=== PATIENT | male | born 1950 | race Caucasian/White ===

== ENCOUNTER 2017-03-12 07:42 | Outpatient (CLI) | payer MEDICARE ==
[2017-03-12 10:43] LABS: BASOPHILS # (AUTO) 0.1 10^3/uL (0.0-0.1); EOSINOPHILS # (AUTO) 0.4 10^3/uL (0.0-0.7); EOSINOPHILS % (AUTO) 8.1 %; HCT - HEMATOCRIT 44.1 % (42.0-52.0); HGB - HEMOGLOBIN 15.4 g/dL (14.0-18.0); LYMPHOCYTES % (AUTO) 18.8 %; MEAN CORPUSCULAR HEMOGLOBIN 31.4 pg (27.0-31.0); MEAN CORPUSCULAR HGB CONC 34.9 g/dL (32.0-36.0); MEAN CORPUSCULAR VOLUME 89.9 fL (80.0-94.0); MEAN PLATELET VOLUME 8.5 fL (7.4-11.4); MONOCYTES # (AUTO) 0.7 10^3/uL (0.0-1.0); MONOCYTES % (AUTO) 13.3 %; NEUTROPHILS # (AUTO) 3.2 10^3/uL (1.5-6.6); NEUTROPHILS % (AUTO) 58.8 %; NUCLEATED RED BLOOD CELLS AUTO 0.1 /100WBC; RED BLOOD COUNT 4.91 10^6/uL (4.70-6.10); RED CELL DISTRIBUTION WIDTH 13.9 % (12.0-15.0); UNCORRECTED WHITE BLOOD COUNT 5.4 x10^3/uL; WHITE BLOOD COUNT 5.4 x10^3/uL (4.8-10.8)
[2017-03-12 11:00] LABS: ALBUMIN/GLOBULIN RATIO 1.2 (1.0-2.2); BILIRUBIN,TOTAL 0.8 mg/dL (0.2-1.0); BUN - BLOOD UREA NITROGEN 21 mg/dL (6-20); CALCIUM 9.4 mg/dL (8.5-10.3); CARBON DIOXIDE - CO2 26 mmol/L (21-32); CHLORIDE 103 mmol/L (101-111); CHOL/HDL RATIO 3.5 (<5.0); CHOLESTEROL 222 mg/dL; GFR - MDRD 74 (>89); GLUCOSE 134 mg/dL (70-100); HDL CHOLESTEROL 63 mg/dL; LDL/HDL RATIO 2.2 (<3.6); POTASSIUM 4.6 mmol/L (3.5-5.0); SODIUM 137 mmol/L (135-145); TOTAL PROTEIN 7.4 g/dL (6.7-8.2); TRIGLYCERIDES 108 mg/dL; VLDL CHOLESTEROL 22 mg/dL
[2017-03-12 11:14] LABS: HEMOGLOBIN A1C 0.75 g/dL
== END 2017-03-12 07:43 | disposition home or self-care (01) ==
LOC: LAB.F 07:42
PROVIDERS: ATTEND Physician Assistant Medical
DX: I10 Essential (primary) hypertension (principal); E78.5 Hyperlipidemia, unspecified; E11.9 Type 2 diabetes mellitus without complications; Z12.5 Encounter for screening for malignant neoplasm of prostate
CPT/HCPCS: 36415; 80053; 80061; 83036; 85025; G0103; 84153

== ENCOUNTER 2017-12-31 10:33 | Outpatient (CLI) | payer MEDICARE ==
[2017-12-31 18:23] LABS: HB2 TOTAL 14.9 g/dL; HEMOGLOBIN A1C 0.82 g/dL; HEMOGLOBIN A1C % 7.2 % (4.6-6.2)
[2017-12-31 18:30] LABS: PSA FREE 0.48 ng/mL (0.16-2.81)
[2017-12-31 18:32] LABS: PSA TOTAL 3.515 ng/mL (0.000-2.000)
== END 2017-12-31 10:34 | disposition home or self-care (01) ==
LOC: LAB.F 10:33
PROVIDERS: ATTEND Physician Assistant Medical
DX: E11.9 Type 2 diabetes mellitus without complications (principal); Z87.898 Personal history of other specified conditions
CPT/HCPCS: 36415; 82043; 83036; 84154

== ENCOUNTER 2018-05-02 07:19 | Outpatient (CLI) | payer MEDICARE ==
[2018-05-02 11:39] LABS: BASOPHILS % (AUTO) 0.6 %; EOSINOPHILS # (AUTO) 0.2 10^3/uL (0.0-0.7); EOSINOPHILS % (AUTO) 3.8 %; HGB - HEMOGLOBIN 14.6 g/dL (14.0-18.0); LYMPHOCYTES # (AUTO) 1.1 10^3/uL (1.5-3.5); LYMPHOCYTES % (AUTO) 18.9 %; MEAN CORPUSCULAR HEMOGLOBIN 31.7 pg (27.0-31.0); MEAN CORPUSCULAR HGB CONC 34.9 g/dL (32.0-36.0); MEAN CORPUSCULAR VOLUME 90.9 fL (80.0-94.0); MEAN PLATELET VOLUME 8.8 fL (7.4-11.4); MONOCYTES # (AUTO) 0.8 10^3/uL (0.0-1.0); MONOCYTES % (AUTO) 13.3 %; NEUTROPHILS # (AUTO) 3.7 10^3/uL (1.5-6.6); NEUTROPHILS % (AUTO) 63.4 %; PLT - PLATELET COUNT 208 10^3/uL (130-450); RED BLOOD COUNT 4.59 10^6/uL (4.70-6.10); RED CELL DISTRIBUTION WIDTH 13.5 % (12.0-15.0); WHITE BLOOD COUNT 5.8 x10^3/uL (4.8-10.8)
[2018-05-02 11:55] LABS: ALBUMIN 3.9 g/dL (3.2-5.5); ALBUMIN/GLOBULIN RATIO 1.3 (1.0-2.2); CALCIUM 9.3 mg/dL (8.5-10.3); CREATININE 1.1 mg/dL (0.6-1.2); TOTAL PROTEIN 6.8 g/dL (6.7-8.2)
== END 2018-05-02 07:20 | disposition home or self-care (01) ==
LOC: LAB.F 07:19
PROVIDERS: ATTEND Internal Medicine Gastroenterology
DX: E11.9 Type 2 diabetes mellitus without complications (principal)
CPT/HCPCS: 36415; 80053; 85025

== ENCOUNTER 2018-05-09 07:52 | Day surgery (SDC) | payer MEDICARE ==
[2018-05-09] MEDS ORDERED: fentaNYL 100 MCG/2 ML VIAL IVP ONE (07:53)
[2018-05-09] MEDS ORDERED: MIDAZOLAM 2 MG/2 ML VIAL IVP ONE (07:53)
[2018-05-09] MEDS ORDERED: LACTATED RINGERS 1,000 ML IV ONE (08:13)
[2018-05-09 10:09] VITALS: BP 135/65
== END 2018-05-09 07:53 | disposition home or self-care (01) ==
LOC: SDS 07:52
PROVIDERS: ATTEND Internal Medicine Gastroenterology
PROC: 0DBN8ZZ Excision of Sigmoid Colon, Via Natural or Artificial Opening Endoscopic (ICD-10-PCS; principal; 2018-05-09 09:00)
DX: Z12.11 Encounter for screening for malignant neoplasm of colon (principal); D12.5 Benign neoplasm of sigmoid colon; K57.30 Diverticulosis of large intestine without perforation or abscess without bleeding; I10 Essential (primary) hypertension; E66.9 Obesity, unspecified; Z68.38 Body mass index [BMI] 38.0-38.9, adult; G47.30 Sleep apnea, unspecified; E11.9 Type 2 diabetes mellitus without complications
CPT/HCPCS: 45380; J7120

== ENCOUNTER 2018-08-07 10:57 | Outpatient (CLI) | payer MEDICARE ==
[2018-08-07 18:08] LABS: CALCIUM 9.5 mg/dL (8.5-10.3)
[2018-08-07 18:12] LABS: CREATININE,URINE 120.5 mg/dL
[2018-08-07 18:15] LABS: PSA FREE 0.729 ng/mL (0.16-2.81); PSA TOTAL 4.238 ng/mL (0.000-2.000)
[2018-08-07 18:46] LABS: MICROALBUMIN,URINE < 0.3 mg/dL (0-300.0)
[2018-08-07 19:01] LABS: HB2 TOTAL 16.7 g/dL; HEMOGLOBIN A1C 1.08 g/dL; HEMOGLOBIN A1C % 8.1 % (4.6-6.2)
== END 2018-08-07 10:58 | disposition home or self-care (01) ==
LOC: LAB.F 10:57
PROVIDERS: ATTEND Physician Assistant Medical
DX: E11.9 Type 2 diabetes mellitus without complications (principal); R97.20 Elevated prostate specific antigen [PSA]; I10 Essential (primary) hypertension; R00.2 Palpitations
CPT/HCPCS: 36415; 80048; 82043; 82570; 83036; 84153; 84154; 84443

== ENCOUNTER 2018-11-18 07:14 | Outpatient (CLI) | payer MEDICARE ==
[2018-11-18 10:45] LABS: HB2 TOTAL 14.9 g/dL; HEMOGLOBIN A1C 0.87 g/dL; HEMOGLOBIN A1C % 7.5 % (4.6-6.2)
[2018-11-18 10:51] LABS: BUN - BLOOD UREA NITROGEN 17 mg/dL (6-20); CALCIUM 9.4 mg/dL (8.5-10.3); CARBON DIOXIDE - CO2 27 mmol/L (21-32); CHLORIDE 100 mmol/L (101-111); CHOLESTEROL 216 mg/dL; GFR - MDRD 74 (>89); GLUCOSE 187 mg/dL (70-100); HDL CHOLESTEROL 54 mg/dL; LDL CHOLESTEROL,CALCULATED 139 mg/dL; LDL/HDL RATIO 2.6 (<3.6); SODIUM 140 mmol/L (135-145); VLDL CHOLESTEROL 23 mg/dL
== END 2018-11-18 07:15 | disposition home or self-care (01) ==
LOC: LAB.S 07:14
PROVIDERS: ATTEND Physician Assistant Medical
DX: I10 Essential (primary) hypertension (principal); E78.5 Hyperlipidemia, unspecified; E11.9 Type 2 diabetes mellitus without complications
CPT/HCPCS: 36415; 80048; 80061; 83036; 83721

== ENCOUNTER 2019-05-27 10:11 | Outpatient (CLI) | payer MEDICARE ==
[2019-05-27 17:59] LABS: HB2 TOTAL 13.6 g/dL; HEMOGLOBIN A1C 0.86 g/dL; HEMOGLOBIN A1C % 7.9 % (4.6-6.2)
== END 2019-05-27 10:12 | disposition home or self-care (01) ==
LOC: LAB.S 10:11
PROVIDERS: ATTEND Physician Assistant Medical
DX: E11.9 Type 2 diabetes mellitus without complications (principal)
CPT/HCPCS: 36415; 83036

== ENCOUNTER 2019-10-08 09:32 | Outpatient (CLI) | payer MEDICARE ==
[2019-10-08 15:12] LABS: CALCIUM 9.5 mg/dL (8.5-10.3); CREATININE 1.1 mg/dL (0.6-1.2)
[2019-10-08 15:30] LABS: CREATININE,URINE 72.6 mg/dL; MICROALBUMIN,URINE < 0.2 mg/dL (0-300.0)
[2019-10-08 15:38] LABS: HB2 TOTAL 15.2 g/dL; HEMOGLOBIN A1C 0.85 g/dL; HEMOGLOBIN A1C % 7.3 % (4.6-6.2)
== END 2019-10-08 09:33 | disposition home or self-care (01) ==
LOC: LAB.S 09:32
PROVIDERS: ATTEND Physician Assistant Medical
DX: E11.9 Type 2 diabetes mellitus without complications (principal); R97.20 Elevated prostate specific antigen [PSA]
CPT/HCPCS: 36415; 80048; 82043; 82570; 83036; 84153

== ENCOUNTER 2019-12-16 10:45 | Outpatient (CLI) | payer MEDICARE ==
--- NOTE | 2019-12-16 11:37 | SLEEP CARE CONSULTATION ---
Information from patient questionnaire entered by Marlen Skaggs. I have reviewed and concur with the information entered by Marlen Skaggs. This document represents the service I personally performed and the decisions made by me, Sebastien Taylor MD, [facility]. 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) Usual bedtime: [id number] Time it takes to fall asleep: 10 minutes or less Snores at night: Yes Observed to quit breathing while asleep: No Sleeps alone due to snoring: No Number of times waking at night: 2 Reasons for waking at night: reports: Bathroom Toss, Turn, or Twitch while sleeping: No Recalls having dreams: Yes Usually gets out of bed at: 1361-1641 Feels refreshed in the morning: Yes Morning headache: No Sleepy or fatigued during the day: No Ever fallen asleep while driving: No Dreams during day naps: No Prior sleep studies: Yes Year and Where: 2009 [facility] Type of Sleep Study: Polysomnography Additional HPI information: I had the pleasure of seeing Mr. Pinzon along with his today regarding mild obstructive sleep apnea-hypopnea. As you know, he is a 70 year old gentleman who was diagnosed with the sleep-disordered breathing here in 2008. The AHI was 9.3, and sung oxygen saturation 85%. At that time he wanted to pursue oral appliance therapy. He states that he is wearing a mouth guard at night but it is only for bruxism. He never tried CPAP. His says that he snores lightly and steadily at night. She has not seen any pauses in his breathing. The patient denies having nocturnal choking, unrefreshed sleep, morning headache, cognitive impairment, excessive daytime sleepiness, or fatigue. He lost 8 lbs since the sleep study. 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 Patient is and lives in [place]. Have you smoked in the past 12 months: No Alcohol use: Yes Alcohol amount and frequency: 1 beer, 2x/month Caffeine use: Yes Caffeine amount and frequency: 2 cups coffee/day Family History Family history of sleep disordered breathing: No Allergies and Home Medications Drug allergies reviewed: Yes Home medication list reviewed: Yes (metformin and lisinopril) Review of Systems Weight loss over past 5 years: 20 Cardiovascular: reports: high blood pressure Respiratory: denies: shortness of breath, wheeze, sputum production, chronic cough, other Gastrointestinal: denies: heartburn, difficulty swallowing, nausea, vomitting, diarrhea, abdominal pain, other Urinary: reports: urgency Neurological: denies: headaches, seizure, head trauma, disorientation, speech dysfunction, gait or balance problems, fainting or unconsciousness, other Psychiatric: denies: Attention Deficit Hyperactivity, anxiety, depression, mood disorder, claustrophobia, other Ear/Nose/Throat: reports: wisdom teeth removed Endocrine: denies: thyroid disease, history of goiter, sluggishness, too hot or cold, excessive thirst, increased appetite, increased urination, unexplained weakness, other Musculoskeletal: reports: neck pain, back pain Immunologic: denies: sneezing, rash, itching, allergies to food or environment, other Physical Exam Vital signs obtained and entered by: To minimize the risk of COVID-19 exposure, detailed exam was not performed. Height: 5 ft 8 in Weight: 229 lb Body Mass Index: 34.8 BMI Classification: Obese Impression and Plan IMPRESSION: 1. Obstructive Sleep Apnea-Hypopnea Syndrome, mild as previously diagnosed. 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 However, the sleep study was over 10 years ago and should be repeated. The patient presently has no symptoms to go along with the diagnosis. He does not have excessive daytime sleepiness, impaired concentration, unrefreshed sleep, or fatigue. The patient agrees to have the sleep study repeated. In the meantime, I recommend he be given an extension to the CDL certification while we are in the process of evaluating his sleep-disordered breathing. Plan: 1. Schedule an in-laboratory polysomnography. He may sleep in any positions he feels comfortable. Our appliance technician will not encourage supine sleep. He may wear his bruxism mouth guard. 2. Return for a follow up after the sleep study. 3. 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 Visit Type: In Office Provider Statement: I spent 100% of the Face to Face Visit with the patient with greater than 50% spent counseling the patient and coordination of care.
== END 2019-12-16 10:46 | disposition home or self-care (01) ==
LOC: SC 10:45
PROVIDERS: ATTEND Internal Medicine Pulmonary Disease
DX: G47.33 Obstructive sleep apnea (adult) (pediatric) (principal); E66.9 Obesity, unspecified; Z68.34 Body mass index [BMI] 34.0-34.9, adult; E11.9 Type 2 diabetes mellitus without complications; Z79.84 Long term (current) use of oral hypoglycemic drugs
CPT/HCPCS: 99203; G0463; 99212

== ENCOUNTER 2020-05-25 07:12 | Outpatient (CLI) | payer MEDICARE ==
[2020-05-25 14:38] LABS: BASOPHILS # (AUTO) 0.1 10^3/uL (0.0-0.1); BASOPHILS % (AUTO) 0.9 %; EOSINOPHILS # (AUTO) 0.2 10^3/uL (0.0-0.7); EOSINOPHILS % (AUTO) 4.2 %; HGB - HEMOGLOBIN 14.4 g/dL (14.0-18.0); LYMPHOCYTES # (AUTO) 1.3 10^3/uL (1.5-3.5); LYMPHOCYTES % (AUTO) 22.8 %; MEAN CORPUSCULAR HEMOGLOBIN 31.1 pg (27.0-31.0); MEAN CORPUSCULAR HGB CONC 33.2 g/dL (32.0-36.0); MEAN CORPUSCULAR VOLUME 93.7 fL (80.0-94.0); MEAN PLATELET VOLUME 10.2 fL (7.4-11.4); MONOCYTES # (AUTO) 0.8 10^3/uL (0.0-1.0); MONOCYTES % (AUTO) 14.8 %; NEUTROPHILS # (AUTO) 3.1 10^3/uL (1.5-6.6); NEUTROPHILS % (AUTO) 56.2 %; PLT - PLATELET COUNT 243 10^3/uL (130-450); RED BLOOD COUNT 4.63 10^6/uL (4.70-6.10); WHITE BLOOD COUNT 5.5 x10^3/uL (4.8-10.8)
[2020-05-25 14:56] LABS: ALBUMIN 3.9 g/dL (3.2-5.5); ALBUMIN/GLOBULIN RATIO 1.3 (1.0-2.2); ALKALINE PHOSPHATASE 32 IU/L (42-121); ALT ALANINE AMINOTRANSFERASE 23 IU/L (10-60); AST ASPARTATE AMINOTRANSFERASE 23 IU/L (10-42); BILIRUBIN,TOTAL 0.9 mg/dL (0.2-1.0); BUN - BLOOD UREA NITROGEN 21 mg/dL (6-20); CALCIUM 9.7 mg/dL (8.5-10.3); CARBON DIOXIDE - CO2 27 mmol/L (21-32); CHLORIDE 100 mmol/L (101-111); CHOLESTEROL 238 mg/dL; CREATININE 1.1 mg/dL (0.6-1.2); GLUCOSE 165 mg/dL (70-100); HDL CHOLESTEROL 60 mg/dL; LDL CHOLESTEROL,CALCULATED 154 mg/dL; LDL/HDL RATIO 2.6 (<3.6); TOTAL PROTEIN 6.8 g/dL (6.7-8.2); VLDL CHOLESTEROL 24 mg/dL
[2020-05-25 16:15] LABS: CREATININE,URINE 143.4 mg/dL; MICROALBUM/CREATININE RATIO,UR 3.5 ug/mg (<30.0); MICROALBUMIN,URINE 0.5 mg/dL (0-300.0)
== END 2020-05-25 07:13 | disposition home or self-care (01) ==
LOC: LAB.S 07:12
PROVIDERS: ATTEND Physician Assistant
DX: E78.5 Hyperlipidemia, unspecified (principal); I10 Essential (primary) hypertension; E11.9 Type 2 diabetes mellitus without complications; E66.9 Obesity, unspecified
CPT/HCPCS: 36415; 80053; 80061; 82043; 82570; 83036; 83721; 84443; 85025

== ENCOUNTER 2020-09-13 12:42 | Outpatient (CLI) | payer MEDICARE ==
--- NOTE | 2020-09-13 13:10 | SLEEP CARE CONSULTATION ---
Information from patient questionnaire entered by Alina Mccarty. I have reviewed and concur with the information entered by Alina Mccarty. This document represents the service I personally performed and the decisions made by me, Sebastien Taylor MD, [facility]. History of Present Illness Service Date and Time: 09/13/2020 1242 Previous diagnosis: Mild, Obstructive Sleep Apnea-Hypopnea Syndrome AHI: 9.3 (in 2008) Reason for follow up: other (9 month, restart process) Prior sleep studies: Yes Year and Where: 2008 - [facility] additional information: I had the pleasure of seeing Mr. Pinzon along with his today regarding mild obstructive sleep apnea-hypopnea. As you know, he is a 70 year old gentleman who was diagnosed with the sleep-disordered breathing here in 2008. The AHI was 9.3, and sung oxygen saturation 85%. At that time he wanted to pursue oral appliance therapy. He states that he is wearing a mouth guard at night but it i s only for bruxism. He never tried CPAP. His says that he snores lightly and steadily at night. She has not seen any pauses in his breathing. The patient denies having nocturnal choking, unrefreshed sleep, morning headache, cognitive impairment, excessive daytime sleepiness, or fatigue. He lost 10 lbs since the sleep study. 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 A sleep study was ordered last year but because of the pandemic, it was never performed. Subjective Initial Sterling Sleepiness Scale score: 10 (in 2008) Current Sterling Sleepiness Scale score: 5 Allergies and Home Medications Drug allergies reviewed: Yes Home medication list reviewed: Yes Review of Systems Review of systems same as previous: Yes Physical Exam Height: 5 ft 8 in Weight: 235 lb Body Mass Index: 35.7 BMI Classification: Obese Impression and Plan IMPRESSION: 1. Obstructive Sleep Apnea-Hypopnea Syndrome, mild as previously diagnosed. 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 However, the sleep study was over 10 years ago and should be repeated. The patient presently has no symptoms to go along with the diagnosis. He does not have excessive daytime sleepiness, impaired concentration, un refreshed sleep, or fatigue. The patient agrees to have the sleep study repeated. Plan: 1. Schedule an in-laboratory polysomnography. He may sleep in any positions he feels comfortable. Our environmental field services technician will not encourage supine sleep. He may wear his bruxism mouth guard. 2. Return for a follow up after the sleep study. Follow up recommended for: Weight management Visit Type: In Office Time Spent with Patient (minutes): 15 Provider Statement: I spent 100% of the Face to Face Visit with the patient with greater than 50% spent counseling the patient and coordination of care.
== END 2020-09-13 12:43 | disposition home or self-care (01) ==
LOC: SC 12:42
PROVIDERS: ATTEND Internal Medicine Pulmonary Disease
DX: G47.33 Obstructive sleep apnea (adult) (pediatric) (principal); E66.9 Obesity, unspecified; Z68.35 Body mass index [BMI] 35.0-35.9, adult
CPT/HCPCS: 99212; G0463

== ENCOUNTER 2020-10-20 19:45 | Outpatient (CLI) | payer MEDICARE | END 2020-10-20 19:46 | disposition home or self-care (01) | LOC: SC 19:45 | PROVIDERS: ATTEND Internal Medicine Pulmonary Disease | DX: G47.33 Obstructive sleep apnea (adult) (pediatric) (principal); G47.61 Periodic limb movement disorder | CPT/HCPCS: 95810 ==

== ENCOUNTER 2020-11-01 15:08 | Outpatient (CLI) | payer MEDICARE ==
--- NOTE | 2020-11-01 16:19 | SLEEP CARE CONSULTATION ---
Information from patient questionnaire entered by Alina Mccarty. I have reviewed and concur with the information entered by Alina Mccarty. This document represents the service I personally performed and the decisions made by me, Sebastien Taylor MD, [facility]. History of Present Illness Service Date and Time: 11/01/2020 1508 Initial [place] Sleepiness Scale score: 10 (in 2008) Additional HPI information: HPI: Mr. Pinzon returned with his for follow up of the sleep study he had on 10/20/2020. 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 The sleep architecture was relatively normal considering the first-night effect. Respiratory monitoring showed no significant sleep disordered breathing (AHI = 2.2) or hypoxia (sung oxygen saturation of 87% only 0.7% to the total sleep time was spent with oxygen saturation below 90%). The few respiratory events occurred independently of sleep stage and body position (supine AHI = 2.5; non-supine = 2.22). Snore was moderate in intensity. There was severe periodic leg movement of sleep not associated with sleep fragmentation. Cardiac rhythm was normal sinus rhythm without significant arrhythmia. No abnormal behavior (parasomnia) observed during the night. The patient was informed of these findings. I explained to him that he no longer has obstructive sleep apnea-hypopnea. Sleep Study - Results Type of Sleep Study: Polysomnography Prior sleep studies: Yes Year and Where: 2008 - [facility] Allergies and Home Medications Drug allergies reviewed: Yes Home medication list reviewed: Yes Review of Systems Review of systems same as previous: Yes Physical Exam Height: 5 ft 8 in Weight: 235 lb Body Mass Index: 35.7 BMI Classification: Obese Impression and Plan IMPRESSION: 1. Obstructive Sleep Apnea-Hypopnea Syndrome, resolved. The sleep- disordered breathing was mild in 2008 and he has lost some weight. No treatment is indicated. The patient is happy to hear of the results. PLAN: 1. Avoid weight gain. 2. Return for follow up on as needed basis. Counseling Topics: Weight control Follow up with Sleep Care in: as needed Visit Type: In Office Other Participants: Spouse/Significant Other Time Spent with Patient (minutes): 10 Provider Statement: I spent 100% of the Face to Face Visit with the patient with greater than 50% spent counseling the patient and coordination of care.
== END 2020-11-01 15:09 | disposition home or self-care (01) ==
LOC: SC 15:08
PROVIDERS: ATTEND Internal Medicine Pulmonary Disease
DX: Z87.09 Personal history of other diseases of the respiratory system (principal); E66.9 Obesity, unspecified; Z68.35 Body mass index [BMI] 35.0-35.9, adult
CPT/HCPCS: 99212; G0463

== ENCOUNTER 2021-05-03 13:53 | Outpatient (CLI) | payer MEDICARE ==
[2021-05-03 20:08] LABS: ALBUMIN/GLOBULIN RATIO 1.2 (1.0-2.2); BILIRUBIN,TOTAL 0.8 mg/dL (0.2-1.0); CALCIUM 9.8 mg/dL (8.5-10.3); CREATININE 1.6 mg/dL (0.6-1.2); POTASSIUM 4.7 mmol/L (3.5-5.0); TOTAL PROTEIN 7.3 g/dL (6.7-8.2)
[2021-05-03 20:58] LABS: ESTIMATED AVERAGE GLUCOSE 194 mg/dL (70-100); HEMOGLOBIN A1c% 8.4 % (4.27-6.07)
== END 2021-05-03 13:54 | disposition home or self-care (01) ==
LOC: LAB.S 13:53
PROVIDERS: ATTEND Internal Medicine
DX: E11.9 Type 2 diabetes mellitus without complications (principal)
CPT/HCPCS: 36415; 80053; 83036

== ENCOUNTER 2021-06-14 08:00 | Outpatient (CLI) | payer MEDICARE ==
[2021-06-14 20:32] LABS: BASOPHILS # (AUTO) 0.1 10^3/uL (0.0-0.1); BASOPHILS % (AUTO) 0.8 %; EOSINOPHILS # (AUTO) 0.2 10^3/uL (0.0-0.7); HCT - HEMATOCRIT 38.6 % (42.0-52.0); HGB - HEMOGLOBIN 13.5 g/dL (14.0-18.0); LYMPHOCYTES # (AUTO) 1.2 10^3/uL (1.5-3.5); LYMPHOCYTES % (AUTO) 18.9 %; MEAN CORPUSCULAR HEMOGLOBIN 32.2 pg (27.0-31.0); MEAN CORPUSCULAR VOLUME 92.1 fL (80.0-94.0); MEAN PLATELET VOLUME 10.9 fL (7.4-11.4); MONOCYTES # (AUTO) 0.7 10^3/uL (0.0-1.0); MONOCYTES % (AUTO) 11.8 %; NEUTROPHILS # (AUTO) 3.9 10^3/uL (1.5-6.6); NEUTROPHILS % (AUTO) 64.7 %; PLT - PLATELET COUNT 218 10^3/uL (130-450); RED BLOOD COUNT 4.19 10^6/uL (4.70-6.10); RED CELL DISTRIBUTION WIDTH 13.1 % (12.0-15.0); WHITE BLOOD COUNT 6.1 x10^3/uL (4.8-10.8)
[2021-06-14 20:44] LABS: ALBUMIN 3.9 g/dL (3.2-5.5); ALBUMIN/GLOBULIN RATIO 1.3 (1.0-2.2); BILIRUBIN,TOTAL 0.9 mg/dL (0.2-1.0); CALCIUM 9.3 mg/dL (8.5-10.3); CREATININE 1.1 mg/dL (0.6-1.2); TOTAL PROTEIN 6.8 g/dL (6.7-8.2)
== END 2021-06-14 23:59 | disposition home or self-care (01) ==
LOC: LAB.S 08:00
PROVIDERS: ATTEND Nurse Practitioner
DX: R30.0 Dysuria (principal)
CPT/HCPCS: 36415; 80053; 84153; 85025; 87086

== ENCOUNTER 2022-01-25 10:47 | Outpatient (CLI) | payer MEDICARE ==
[2022-01-25 15:24] LABS: ALBUMIN 3.9 g/dL (3.2-5.5); ALBUMIN/GLOBULIN RATIO 1.2 (1.0-2.2); ALKALINE PHOSPHATASE 30 IU/L (42-121); ALT ALANINE AMINOTRANSFERASE 28 IU/L (10-60); AST ASPARTATE AMINOTRANSFERASE 26 IU/L (10-42); BUN - BLOOD UREA NITROGEN 24 mg/dL (6-20); CALCIUM 9.6 mg/dL (8.5-10.3); CARBON DIOXIDE - CO2 25 mmol/L (21-32); CHLORIDE 101 mmol/L (101-111); CHOL/HDL RATIO 4.4 (<5.0); CHOLESTEROL 244 mg/dL; CREATININE 1.1 mg/dL (0.6-1.2); GFR - MDRD 66 (>89); GLUCOSE 108 mg/dL (70-100); HDL CHOLESTEROL 55 mg/dL; LDL CHOLESTEROL,CALCULATED 135 mg/dL; LDL/HDL RATIO 2.5 (<3.6); POTASSIUM 4.9 mmol/L (3.5-5.0); SODIUM 132 mmol/L (135-145); TOTAL PROTEIN 7.1 g/dL (6.7-8.2); TRIGLYCERIDES 268 mg/dL; VLDL CHOLESTEROL 54 mg/dL
[2022-01-25 15:54] LABS: THYROID STIMULATING HORMONE 2.85 uIU/mL (0.34-5.60)
[2022-01-25 20:32] LABS: ESTIMATED AVERAGE GLUCOSE 169 mg/dL (70-100); HEMOGLOBIN A1c% 7.5 % (4.27-6.07)
== END 2022-01-25 10:48 | disposition home or self-care (01) ==
LOC: LAB.S 10:47
PROVIDERS: ATTEND Registered Nurse
DX: I10 Essential (primary) hypertension (principal); E11.9 Type 2 diabetes mellitus without complications; E78.5 Hyperlipidemia, unspecified
CPT/HCPCS: 36415; 80053; 80061; 83036; 83721; 84443

== ENCOUNTER 2022-08-07 10:05 | Outpatient (CLI) | payer MEDICARE ==
[2022-08-07 14:47] LABS: BASOPHILS % (AUTO) 0.4 %; EOSINOPHILS # (AUTO) 0.1 10^3/uL (0.0-0.7); HCT - HEMATOCRIT 34.6 % (42.0-52.0); HGB - HEMOGLOBIN 11.6 g/dL (14.0-18.0); LYMPHOCYTES # (AUTO) 0.8 10^3/uL (1.5-3.5); LYMPHOCYTES % (AUTO) 10.9 %; MEAN CORPUSCULAR HEMOGLOBIN 31.1 pg (27.0-31.0); MEAN CORPUSCULAR HGB CONC 33.5 g/dL (32.0-36.0); MEAN CORPUSCULAR VOLUME 92.8 fL (80.0-94.0); MEAN PLATELET VOLUME 10.2 fL (7.4-11.4); MONOCYTES # (AUTO) 0.9 10^3/uL (0.0-1.0); MONOCYTES % (AUTO) 13.4 %; NEUTROPHILS # (AUTO) 5.1 10^3/uL (1.5-6.6); NEUTROPHILS % (AUTO) 72.6 %; PLT - PLATELET COUNT 225 10^3/uL (130-450); RED BLOOD COUNT 3.73 10^6/uL (4.70-6.10); RED CELL DISTRIBUTION WIDTH 13.2 % (12.0-15.0)
[2022-08-07 15:22] LABS: CALCIUM 9.1 mg/dL (8.5-10.3); CREATININE 2.8 mg/dL (0.6-1.2); POTASSIUM 4.7 mmol/L (3.5-5.0)
[2022-08-07 15:33] LABS: CREATININE,URINE 79.6 mg/dL; MICROALBUM/CREATININE RATIO,UR 35.2 ug/mg (<30.0); MICROALBUMIN,URINE 2.8 mg/dL (0-300.0)
[2022-08-07 21:26] LABS: ESTIMATED AVERAGE GLUCOSE 192 mg/dL (70-100); HEMOGLOBIN A1c% 8.3 % (4.27-6.07)
== END 2022-08-07 10:06 | disposition home or self-care (01) ==
LOC: LAB.S 10:05
PROVIDERS: ATTEND Registered Nurse
DX: E11.9 Type 2 diabetes mellitus without complications (principal); Z13.0 Encounter for screening for diseases of the blood and blood-forming organs and certain disorders involving the immune mechanism
CPT/HCPCS: 36415; 80048; 82043; 82570; 83036; 85025

== ENCOUNTER 2022-08-09 07:00 | Outpatient (CLI) | payer MEDICARE ==
[2022-08-09 14:16] LABS: BILIRUBIN,URINE NEGATIVE (NEGATIVE); GLUCOSE, URINE (UA) NEGATIVE (NEGATIVE); KETONES,URINE (UA) NEGATIVE (NEGATIVE); LEUKOCYTE ESTERASE, URINE NEGATIVE (NEGATIVE); NITRITE,URINE NEGATIVE (NEGATIVE); OCCULT BLOOD,URINE MODERATE (NEGATIVE); PROTEIN,URINE NEGATIVE (NEGATIVE); UROBILINOGEN,URINE 0.2 (NORMAL) E.U./dL (NORMAL)
[2022-08-09 14:23] LABS: BACTERIA,URINE Rare /HPF (None Seen); CLARITY,URINE CLEAR (CLEAR); SQUAMOUS EPITHELIAL CELL,UR RARE Squamous (<= Few); WBC,URINE 0-3 /HPF (0-3)
== END 2022-08-09 23:59 | disposition home or self-care (01) ==
LOC: LAB.S 07:00
PROVIDERS: ATTEND Emergency Medicine
DX: N40.0 Benign prostatic hyperplasia without lower urinary tract symptoms (principal); N40.2 Nodular prostate without lower urinary tract symptoms
CPT/HCPCS: 36415; 81001; 84153; 87086

== ENCOUNTER 2022-08-11 09:23 | Outpatient (CLI) | payer MEDICARE ==
[2022-08-11 15:19] LABS: CALCIUM 9.5 mg/dL (8.5-10.3); CREATININE 1.4 mg/dL (0.6-1.2); POTASSIUM 4.6 mmol/L (3.5-5.0)
== END 2022-08-11 09:24 | disposition home or self-care (01) ==
LOC: LAB.S 09:23
PROVIDERS: ATTEND Emergency Medicine
DX: N17.9 Acute kidney failure, unspecified (principal)
CPT/HCPCS: 36415; 80048

== ENCOUNTER 2022-08-25 09:20 | Outpatient (CLI) | payer MEDICARE ==
[2022-08-25 14:33] LABS: BASOPHILS # (AUTO) 0.1 10^3/uL (0.0-0.1); BASOPHILS % (AUTO) 0.5 %; EOSINOPHILS # (AUTO) 0.1 10^3/uL (0.0-0.7); EOSINOPHILS % (AUTO) 1.3 %; HCT - HEMATOCRIT 37.2 % (42.0-52.0); HGB - HEMOGLOBIN 12.5 g/dL (14.0-18.0); LYMPHOCYTES # (AUTO) 0.8 10^3/uL (1.5-3.5); LYMPHOCYTES % (AUTO) 7.9 %; MEAN CORPUSCULAR HEMOGLOBIN 31.3 pg (27.0-31.0); MEAN CORPUSCULAR HGB CONC 33.6 g/dL (32.0-36.0); MEAN PLATELET VOLUME 10.2 fL (7.4-11.4); MONOCYTES # (AUTO) 1.3 10^3/uL (0.0-1.0); NEUTROPHILS % (AUTO) 77.4 %; PLT - PLATELET COUNT 260 10^3/uL (130-450); RED CELL DISTRIBUTION WIDTH 12.9 % (12.0-15.0); WHITE BLOOD COUNT 10.4 x10^3/uL (4.8-10.8)
[2022-08-25 14:40] LABS: CALCIUM 9.7 mg/dL (8.5-10.3); CREATININE 1.1 mg/dL (0.6-1.2); POTASSIUM 4.6 mmol/L (3.5-5.0)
== END 2022-08-25 09:21 | disposition home or self-care (01) ==
LOC: LAB.S 09:20
PROVIDERS: ATTEND Emergency Medicine
DX: E11.9 Type 2 diabetes mellitus without complications (principal); I10 Essential (primary) hypertension; N17.9 Acute kidney failure, unspecified
CPT/HCPCS: 36415; 80048; 85025

== ENCOUNTER 2022-12-05 11:01 | Outpatient (CLI) | payer MEDICARE ==
[2022-12-05 15:19] LABS: BASOPHILS # (AUTO) 0.1 10^3/uL (0.0-0.1); BASOPHILS % (AUTO) 1.1 %; EOSINOPHILS # (AUTO) 0.3 10^3/uL (0.0-0.7); HCT - HEMATOCRIT 38.4 % (42.0-52.0); HGB - HEMOGLOBIN 12.9 g/dL (14.0-18.0); LYMPHOCYTES # (AUTO) 1.6 10^3/uL (1.5-3.5); LYMPHOCYTES % (AUTO) 21.2 %; MEAN CORPUSCULAR HEMOGLOBIN 30.6 pg (27.0-31.0); MEAN CORPUSCULAR HGB CONC 33.6 g/dL (32.0-36.0); MEAN PLATELET VOLUME 10.3 fL (7.4-11.4); MONOCYTES % (AUTO) 12.8 %; NEUTROPHILS # (AUTO) 4.5 10^3/uL (1.5-6.6); NEUTROPHILS % (AUTO) 59.7 %; PLT - PLATELET COUNT 276 10^3/uL (130-450); RED BLOOD COUNT 4.22 10^6/uL (4.70-6.10); RED CELL DISTRIBUTION WIDTH 13.5 % (12.0-15.0); WHITE BLOOD COUNT 7.6 x10^3/uL (4.8-10.8)
[2022-12-05 15:43] LABS: ALBUMIN 4.1 g/dL (3.2-5.5); ALBUMIN/GLOBULIN RATIO 1.1 (1.0-2.2); BILIRUBIN,TOTAL 0.6 mg/dL (0.2-1.0); CALCIUM 10.2 mg/dL (8.5-10.3); CREATININE 1.4 mg/dL (0.6-1.3); POTASSIUM 4.5 mmol/L (3.5-4.5); TOTAL PROTEIN 7.7 g/dL (6.4-8.9)
[2022-12-05 21:30] LABS: ESTIMATED AVERAGE GLUCOSE 197 mg/dL (70-100); HEMOGLOBIN A1c% 8.5 % (4.27-6.07)
== END 2022-12-05 11:02 | disposition home or self-care (01) ==
LOC: LAB.S 11:01
PROVIDERS: ATTEND Registered Nurse
DX: I10 Essential (primary) hypertension (principal); N17.9 Acute kidney failure, unspecified; E11.9 Type 2 diabetes mellitus without complications
CPT/HCPCS: 36415; 80053; 83036; 85025

== ENCOUNTER 2023-03-08 10:14 | Outpatient (CLI) | payer MEDICARE ==
[2023-03-08 15:00] LABS: BILIRUBIN,URINE NEGATIVE (NEGATIVE); GLUCOSE, URINE (UA) NEGATIVE (NEGATIVE); KETONES,URINE (UA) NEGATIVE (NEGATIVE); LEUKOCYTE ESTERASE, URINE NEGATIVE (NEGATIVE); NITRITE,URINE NEGATIVE (NEGATIVE); OCCULT BLOOD,URINE SMALL (NEGATIVE); PH,URINE 5.5 PH (5.0-7.5); PROTEIN,URINE NEGATIVE (NEGATIVE); UROBILINOGEN,URINE 0.2 (NORMAL) E.U./dL (NORMAL)
[2023-03-08 15:20] LABS: BACTERIA,URINE Rare /HPF (None Seen); CLARITY,URINE CLEAR (CLEAR); CRYSTALS,URINE 11-25 Ca Oxalate /LPF; RBC,URINE 0-5 /HPF (0-5); SQUAMOUS EPITHELIAL CELL,UR NONE SEEN (<= Few); WBC,URINE 0-3 /HPF (0-3)
== END 2023-03-08 10:15 | disposition home or self-care (01) ==
LOC: LAB.S 10:14
PROVIDERS: ATTEND Urology
DX: N39.0 Urinary tract infection, site not specified (principal); N32.0 Bladder-neck obstruction; Z97.8 Presence of other specified devices
CPT/HCPCS: 81001

== ENCOUNTER 2023-03-23 10:04 | Outpatient (CLI) | payer MEDICARE ==
[2023-03-23 16:03] LABS: CALCIUM 10.1 mg/dL (8.5-10.3); CREATININE 1.4 mg/dL (0.6-1.3); POTASSIUM 4.6 mmol/L (3.5-4.5)
[2023-03-23 18:28] LABS: ESTIMATED AVERAGE GLUCOSE 200 mg/dL (70-100); HEMOGLOBIN A1c% 8.6 % (4.27-6.07)
== END 2023-03-23 10:05 | disposition home or self-care (01) ==
LOC: LAB.S 10:04
PROVIDERS: ATTEND Registered Nurse
DX: E11.9 Type 2 diabetes mellitus without complications (principal)
CPT/HCPCS: 36415; 80048; 83036

== ENCOUNTER 2023-06-20 10:27 | Outpatient (CLI) | payer MEDICARE ==
[2023-06-20 16:48] LABS: ESTIMATED AVERAGE GLUCOSE 209 mg/dL (70-100); HEMOGLOBIN A1c% 8.9 % (4.27-6.07)
[2023-06-20 17:05] LABS: CALCIUM 10.4 mg/dL (8.5-10.3); CREATININE 1.7 mg/dL (0.6-1.3); POTASSIUM 4.6 mmol/L (3.5-4.5)
== END 2023-06-20 10:28 | disposition home or self-care (01) ==
LOC: LAB.S 10:27
PROVIDERS: ATTEND Registered Nurse
DX: E11.9 Type 2 diabetes mellitus without complications (principal)
CPT/HCPCS: 36415; 80048; 83036

== ENCOUNTER 2023-09-19 08:17 | Outpatient (CLI) | payer MEDICARE ==
[2023-09-19 15:35] LABS: CALCIUM 9.8 mg/dL (8.5-10.3); CREATININE 1.8 mg/dL (0.6-1.3); POTASSIUM 5.1 mmol/L (3.5-4.5)
[2023-09-19 20:49] LABS: ESTIMATED AVERAGE GLUCOSE 171 mg/dL (70-100); HEMOGLOBIN A1c% 7.6 % (4.27-6.07)
== END 2023-09-19 08:18 | disposition home or self-care (01) ==
LOC: LAB.S 08:17
PROVIDERS: ATTEND Registered Nurse
DX: E11.9 Type 2 diabetes mellitus without complications (principal)
CPT/HCPCS: 36415; 80048; 83036

== ENCOUNTER 2023-09-27 08:45 | Outpatient (CLI) | payer MEDICARE | END 2023-09-27 08:46 | disposition home or self-care (01) | LOC: LAB.S 08:45 | PROVIDERS: ATTEND Registered Nurse | DX: E87.5 Hyperkalemia (principal) | CPT/HCPCS: 36415; 84132 ==

== ENCOUNTER 2023-12-22 08:57 | Outpatient (CLI) | payer MEDICARE ==
[2023-12-22 09:46] LABS: BASOPHILS # (AUTO) 0.1 10^3/uL (0.0-0.1); BASOPHILS % (AUTO) 0.8 %; EOSINOPHILS # (AUTO) 0.4 10^3/uL (0.0-0.7); EOSINOPHILS % (AUTO) 6.3 %; HCT - HEMATOCRIT 37.2 % (42.0-52.0); HGB - HEMOGLOBIN 12.6 g/dL (14.0-18.0); LYMPHOCYTES # (AUTO) 1.2 10^3/uL (1.5-3.5); LYMPHOCYTES % (AUTO) 18.9 %; MEAN CORPUSCULAR HEMOGLOBIN 31.3 pg (27.0-31.0); MEAN CORPUSCULAR HGB CONC 33.9 g/dL (32.0-36.0); MEAN CORPUSCULAR VOLUME 92.5 fL (80.0-94.0); MEAN PLATELET VOLUME 9.9 fL (7.4-11.4); MONOCYTES # (AUTO) 0.7 10^3/uL (0.0-1.0); MONOCYTES % (AUTO) 11.7 %; NEUTROPHILS # (AUTO) 3.8 10^3/uL (1.5-6.6); NEUTROPHILS % (AUTO) 61.2 %; PLT - PLATELET COUNT 222 10^3/uL (130-450); RED BLOOD COUNT 4.02 10^6/uL (4.70-6.10); RED CELL DISTRIBUTION WIDTH 13.3 % (12.0-15.0); WHITE BLOOD COUNT 6.2 x10^3/uL (4.8-10.8)
[2023-12-22 10:08] LABS: CREATININE,URINE 48.8 mg/dL; MICROALBUM/CREATININE RATIO,UR 30.7 ug/mg (<30.0); MICROALBUMIN,URINE 1.5 mg/dL
[2023-12-22 10:11] LABS: ALBUMIN 3.9 g/dL (3.2-5.5); ALBUMIN/GLOBULIN RATIO 1.2 (1.0-2.2); ALKALINE PHOSPHATASE 39 IU/L (42-121); ALT ALANINE AMINOTRANSFERASE 14 IU/L (10-60); AST ASPARTATE AMINOTRANSFERASE 18 IU/L (10-42); BILIRUBIN,TOTAL 0.7 mg/dL (0.2-1.0); BUN - BLOOD UREA NITROGEN 37 mg/dL (6-20); CALCIUM 9.8 mg/dL (8.5-10.3); CARBON DIOXIDE - CO2 24 mmol/L (21-32); CHLORIDE 101 mmol/L (101-111); CHOL/HDL RATIO 4.4 (<5.0); CHOLESTEROL 225 mg/dL; CREATININE 1.8 mg/dL (0.6-1.3); GFR - MDRD 37 (>89); GLUCOSE 129 mg/dL (74-104); HDL CHOLESTEROL 51 mg/dL; LDL CHOLESTEROL,CALCULATED 118 mg/dL; LDL/HDL RATIO 2.3 (<3.6); SODIUM 133 mmol/L (135-145); TOTAL PROTEIN 7.1 g/dL (6.4-8.9); TRIGLYCERIDES 280 mg/dL; VLDL CHOLESTEROL 56 mg/dL
[2023-12-22 10:20] LABS: THYROID STIMULATING HORMONE 2.93 uIU/mL (0.34-5.60)
[2023-12-22 10:49] LABS: ESTIMATED AVERAGE GLUCOSE 151 mg/dL (70-100); HEMOGLOBIN A1c% 6.9 % (4.27-6.07)
== END 2023-12-22 08:58 | disposition home or self-care (01) ==
LOC: LAB 08:57
PROVIDERS: ATTEND Registered Nurse
DX: E11.9 Type 2 diabetes mellitus without complications (principal); Z13.228 Encounter for screening for other metabolic disorders; Z13.29 Encounter for screening for other suspected endocrine disorder; Z13.0 Encounter for screening for diseases of the blood and blood-forming organs and certain disorders involving the immune mechanism; Z13.220 Encounter for screening for lipoid disorders
CPT/HCPCS: 36415; 80053; 80061; 82043; 82570; 83036; 83721; 84443; 85025

== ENCOUNTER 2024-09-28 12:40 | Inpatient (IN) ==
--- NOTE | 2024-09-28 13:21 | ED Physician Documentation ---
History of Present Illness Stated complaint Stated Complaint: CATHETER ISSUES Chief complaint Chief Complaint: General History obtained from History obtained from: Patient Additonal information Additional information: This is a very nice 74-year-old gentleman who presents with hematuria. The patient has a history of prostate hypertrophy, and over the course of the past 2 years he has been self catheterizing to void. He had some hematuria develop last night and was seen here early this morning in the emergency department and had an indwelling urinary catheter placed due to clots resulting in acute urethral obstruction. Per notes, they tried a number of different catheter sizes and ultimately were only able to get in a 16 Emirati coud catheter. They irrigated this until clear and patient was discharged home. He states things were going okay up until shortly prior to arrival when he developed increasing hematuria and then felt like he was not passing any urine. He is quite uncomfortable. He is on any anticoagulation, is on finasteride and tamsulosin. He follows with Dr. Lang, urologist in [place]. Notably, the patient is [employer]ism and would not want any blood transfusion or blood products. Review of Systems Status of ROS: 10 or more systems reviewed and unremarkable except as noted in history and below Meds/Allgy Home Medications Ambulatory Orders Medication Instructions Recorded Confirmed vibegron 75 mg tablet (Gemtesa) 75 mg PO QDAY 03/25/24 09/28/24 finasteride 5 mg tablet 5 mg PO QDAY 09/24/24 glipizide 10 mg tablet, extended 10 mg PO QDAY 5 09/28/24 release 24 hr tadalafil 5 mg tablet 5 mg PO QDAY 09/24/24 tamsulosin 0.4 mg capsule 0.8 mg PO QDAY 09/24/2412/15 insulin glargine-yfgn 100 unit/mL 10 unit (0.1 mL) sub cut QPM 09/27/24 09/28/24 (3 mL) subcutaneous pen stopped metformin d/t CKD #1 5 mL pen needle, diabetic 31 gauge x #400 ea 09/27/2409/27" empagliflozin 10 mg tablet 10 mg PO DAILY 09/28/2412/15 (Jardiance) lisinopril 20 mg tablet 10 mg PO QDAY 09/28/2409/28 Allergies Allergies Allergy/AdvReac Type Severity Reaction Status Date / Time No Known Drug Allergies Allergy Verified 09/28/24 12:45 PFSH Active Problems All Active Problems (Updated 09/28/24 @ 16:39 by EDWAR Wan) Prostate mass (Acute) Acute urethral obstruction (Acute) Hematuria (Acute) Acute hyperkalemia (Acute) Hyperkalemia (Acute) Acute urethral obstruction (Acute) Hematuria (Acute) Diabetes mellitus with chronic kidney disease, with long-term current use of insulin (Acute) Insulin dependent diabetes mellitus (Acute) Chronic renal disease, stage 4, severely decreased glomerular filtration rate (GFR) between 15-29 mL/min/1.73 square meter (Acute) Family history of thyroid disease (Acute) Elevated alkaline phosphatase level (Acute) Tachycardia (Acute) Urinary retention (Acute) Hyperlipidemia (Acute) Essential hypertension, benign (Acute) Medical History Medical History Benign prostate hyperplasia Family History Family History Father High blood pressure Mother High blood pressure Social History Social History Smoking Status: Never smoker Do you dip or chew tobacco?: No Do you vape?: No Relationship: Do you feel safe in your home environment?: Yes Suffered physical, verbal, emotional, or financial abuse?: No History of Abuse: No ETOH Use: Beer Frequency: Occasional Substance Use: denies use POLST Patient has POLST: No Exam Exam Vital Signs: Vital Signs x48h Temp Pulse Resp BP Pulse Ox 09/28/24 16:12 97 18 160/83 H 97 09/28/24 15:22 104 H 18 179/89 H 97 09/28/24 12:45 36.3 C L 102 H 18 157/83 H 96 Constitutional normal general appearance, no apparent distress, no limitations and alert Respiratory breath sounds equal bilaterally, normal respiratory effort and no retractions Cardiovascular normal heart rate noted, regular rhythm noted and peripheral pulses 2+ throughout Gastrointestinal abdomen normal to inspection, abdomen soft to palpation, nontender to palpation and nondistended Genitourinary Indwelling Daniels catheter in place draining scant bloody urine, normal external genitalia, bladder full to palpation. Results Vitals Vitals: Vital Signs - 24 hr 09/28/24 03:10 09/28/24 12:45 09/28/24 15:22 Temperature 36.3 C L Temperature Source Temporal Artery Scan Pulse Rate 102 H 104 H Respiratory Rate 18 18 Blood Pressure 157/83 H 179/89 H O2 Saturation 96 97 O2 Source Room air Room air Room air Pain Intensity 1 5 09/28/24 16:12 Temperature Temperature Source Pulse Rate 97 Respiratory Rate 18 Blood Pressure 160/83 H O2 Saturation 97 O2 Source Room air Pain Intensity Oxygen O2 Source Room air EKG (time done) 1524: EKG releavant findings:: EKG personally interpreted by author of this note. Relevant findings are: Rate: Rate (enter#) (100) Rhythm: Sinus tachycardia Intervals: Prolonged NV QRS: RBBB Ischemia: Normal ST segments Computer interpretation: Agree with computer Labs Labs: Laboratory Tests 09/28/24 14:30 WBC 6.8 RBC 3.30 L Hgb 10.0 L Hct 30.5 L MCV 92.4 MCH 30.3 MCHC 32.8 RDW 14.3 Plt Count 199 MPV 9.0 Neut # (Auto) 5.2 Lymph # (Auto) 0.5 L Kimball # (Auto) 0.9 Eos # (Auto) 0.1 Baso # (Auto) 0.0 Absolute Nucleated RBC 0.00 Nucleated RBC % 0.0 Sodium 132 L Potassium 6.2 H* Chloride 106 Carbon Dioxide 20 L Anion Gap 6.0 BUN 50 H Creatinine 3.2 H Estimated GFR (MDRD) 19 L Glucose 152 H Calcium 8.9 Total Bilirubin 0.5 AST 21 ALT 9 L Alkaline Phosphatase 290 H Total Protein 6.8 Albumin 3.9 Globulin 2.9 Albumin/Globulin Ratio 1.3 Lipase 23 PD Medical Decision Making ED course Complexity details: reviewed old records, reviewed results, re-evaluated patient, considered differential, d/w patient, d/w family and d/w international travel consultant ED course: Very nice 74-year-old male presents with hematuria after Daniels catheter was placed last night for acute ureteral obstruction. Patient had a 16 Emirati Daniels catheter placed and unfortunately has clotted off with blood. We initially attempted irrigation of the 16 Emir[place] as it was difficult to place early this morning and they were not able to place anything larger. He did respond well to irrigation but after period of time clotted off again with blood. In the meantime, I did order a CT abdomen pelvis Noncon to evaluate for any potential causes of the bleeding and unfortunately this does show likely metastatic prostate cancer. I subsequently obtained labs as recent labs showed a worsening renal function and slowly rising potassium, and this was again somewhat worse today with a potassium of 6.2, and creatinine of 3.2 up from a prior of 2.8. The patient was given calcium gluconate, IV fluids, insulin and glucose, EKG shows no acute T wave changes or signs of hyperkalemia. I have spoken with Dr. Guo the urologist to has reviewed the images and spoken with the patient. He recommends three-way Daniels catheter drainage and we placed a 22 Emirati catheter here and started three-way bladder irrigation which patient is tolerating well. We will obtain a repeat potassium and renal function panel and if improved, patient can be admitted to the hospitalist service for ongoing management of hyperkalemia and hematuria quiring continuous bladder irrigation. Discharge Plan Discharge Patient Disposition: 66 [facility] DC/Xfer Condition: Good Clinical Impression: Acute hyperkalemia, Hematuria, Acute urethral obstruction, Prostate mass Prescriptions: No Action Jardiance 10 mg tablet 10 mg PO DAILY lisinopril 20 mg tablet 10 mg PO QDAY Gemtesa 75 mg tablet 75 mg PO QDAY finasteride 5 mg tablet 5 mg PO QDAY glipizide 10 mg tablet extended release 24hr 10 mg PO QDAY tamsulosin 0.4 mg capsule 0.8 mg PO QDAY tadalafil 5 mg tablet 5 mg PO QDAY insulin glargine-yfgn 100 unit/mL (3 mL) insulin pen 10 unit subcut QPM Qty: 15 2RF Rx Instructions: Inject 10 units subcutaneously (30-degree angle) into abdomen every night. May increase dose by 2 units/night every 3 days to maintain fasting blood glucose between 90 and 120 mg/dL. Rotate abdominal skin sites. Follow up in 3 months. Get lab work monthly until seen. (DME) pen needle, diabetic 31 gauge x 5/16" needle See Rx Instructions .Route Qty: 400 0RF Rx Instructions: As directed Print Language: Gabonese
--- OUTSIDE RECORDS SUMMARY | 2024-09-28 13:44 | EXTERNAL MEDICAL SUMMARY RPT | Continuity of Care Document ---
Author Organization [facility] Address [address] [place] [id number] Phone Care Team Providers Care Dairy Consultant Name Role Phone Jessica Bradley Unavailable Unavailable Medications date description facility 2024-07-22 00:00 Cephalexin [facility] 2024-07-15 00:00 Lisinopril [facility] 2024-07-15 00:00 Metformin [facility] Problems date description facility 2024-07-15 10:25 Urinary tract infection, site n ot specified [facility] 2024-07-16 05:30 Urinary tract infection, site n ot specified [facility] 2024-07-16 12:49 Urinary tract infection, site n ot specified [facility] 2024-08-01 09:19 Urinary tract infection, site n ot specified [facility] 2024-08-28 13:21 Elevated prostate specific anti gen [PSA] [facility] 2024-08-29 00:05 Elevated prostate specific anti gen [PSA] [facility] 2024-09-04 00:00 History of urinary tract infect ion [facility] 2024-09-04 10:35 Elevated prostate specific anti gen [PSA] [facility] 2024-09-04 10:38 Elevated prostate specific anti gen [PSA] [facility] 2024-09-04 10:44 Elevated prostate specific anti gen [PSA] [facility] 2024-09-05 10:58 Elevated prostate specific anti gen [PSA] [facility] 2024-09-09 09:37 Elevated prostate specific anti gen [PSA] [facility] 2024-09-18 08:42 Type 2 diabetes andreas itus with unspecified complications [facility] 2024-09-18 08:42 Essential (primary) hypertensio [facility] 2024-09-18 08:43 Type 2 diabetes andreas itus with unspecified complications [facility] 2024-09-18 08:43 Essential (primary) hypertensio [facility] 2024-09-19 00:06 Type 2 diabetes andreas itus with unspecified complications [facility] 2024-09-19 00:06 Essential (primary) hypertensio n [facility] 2024-09-23 12:25 Essential (primary) hypertensio n [facility] 2024-09-25 00:01 Abnormal levels of other serum enzymes [facility] 2024-09-25 00:01 Family history of ot her endocrine, nutritional and metabolic diseases [facility] Results/Labs test date facility value unit notes Result panel 1 Urine Culture 2024-07-16 08:40 [facility] (missing) (missing) (missing) [facility] 2024-07-16 08:40 [facility] Very Early Growth: Culture too young for work-up reincubated (missing) Comment CHECK FOR SENSITIVIES Result panel 2 Urine Culture 2024-07-17 07:46 [facility] (missing) (missing) (missing) [facility] 2024-07-17 07:46 [facility] Very Early Growth: Culture too young for work-up reincubated (missing) Comment CHECK FOR SENSITIVIES Result panel 3 [facility] 2024-07-18 07:20 [facility] >100,000 cfu/ml (missing) Ampicillin 2024-07-18 07:20 [facility] >=32 (missing) (missing) Levofloxacin 2024-07-18 07:20 [facility] <=0.12 (missing) (missing) Ciprofloxacin 2024-07-18 07:20 [facility] <=0.25 (missing) (missing) Imipenem 2024-07-18 07:20 [facility] <=0.25 (missing) (missing) Ertapenem 2024-07-18 07:20 [facility] <=0.5 (missing) (missing) Cefepime 2024-07-18 07:20 [facility] <=1 (missing) (missing) Ceftazidime 2024-07-18 07:20 [facility] <=1 (missing) (missing) Ceftriaxone 2024-07-18 07:20 [facility] <=1 (missing) (missing) Gentamicin 2024-07-18 07:20 [facility] <=1 (missing) (missing) Tobramycin 2024-07-18 07:20 [facility] <=1 (missing) (missing) Amoxicillin/Clavul anate 2024-07-18 07:20 [facility] <=2 (missing) (missing) Trimethoprim/Sulfa methoxazole 2024-07-18 07:20 [facility] <=20 (missing) (missing) Cefazolin 2024-07-18 07:20 [facility] <=4 (missing) (missing) Nitrofurantoin 2024-07-18 07:20 [facility] 32 (missing) (missing) Ampicillin/Sulbact am 2024-07-18 07:20 [facility] 8 (missing) (missing) [facility]24-07-18 07[facility] oxytoca (missing) Comment CHECK FOR SENSITIVIES Action to follow 2024-07-18 07:20 [facility] No Further Workup (missing) (missing) Result panel 4 PSA TOTAL 2024-08-28 13:30 [facility] 242.673 ng/ml [facility] uses a WHO cutoff value of 2.0 ng/mL. Result panel 5 [facility] 2024-09-05 08:10 [facility] >100,000 cfu/ml (missing) ORGANISM 2024-09-05 08:10 [facility] GNBGram negative bacilli (missing) (missing) Action to follow 2024-09-05 08:10 [facility] Identification and Sensitivity to Follow (missing) (missing) Result panel 6 Urine Culture 2024-09-06 09:01 [facility] (missing) (missing) (missing) [facility] 2024-09-06 09:01 [facility] >100,000 cfu/ml (missing) Ampicillin 2024-09-06 09:01 [facility] >=32 (missing) (missing) Ciprofloxacin 2024-09-06 09:01 [facility] <=0.06 (missing) (missing) Ertapenem 2024-09-06 09:01 [facility] <=0.12 (missing) (missing) Levofloxacin 2024-09-06 09:01 [facility] <=0.12 (missing) (missing) Ceftriaxone 2024-09-06 09:01 [facility] <=0.25 (missing) (missing) Meropenem 2024-09-06 09:01 [facility] <=0.25 (missing) (missing) Gentamicin 2024-09-06 09:01 [facility] <=1 (missing) (missing) Tetracycline 2024-09-06 09:01 [facility] <=1 (missing) (missing) Nitrofurantoin 2024-09-06 09:01 [facility] <=16 (missing) (missing) Amoxicillin/Clavula kailash 2024-09-06 09:01 [facility] <=2 (missing) (missing) Trimethoprim/Sulfam ethoxazole 2024-09-06 09:01 [facility] <=20 (missing) (missing) Urine Culture 2024-09-06 09:01 [facility] Isolates that test susceptible to tetracycline are (missing) (missing) ORGANISM 2024-09-06 09:01 [facility] KLEOXY[facility]lebsiella oxytoca (missing) (missing) Action to follow 2024-09-06 09:01 [facility] No Further Workup (missing) (missing) Urine Culture 2024-09-06 09:01 [facility] considered susceptible to doxycycline and minocycline. (missing) (missing) Result panel 7 NUCLEATED RED BLOOD CELLS AUTO 2024-09-18 09:03 [facility] 0.0 /100wbc (missing) BASOPHILS # (AUTO) 2024-09-18 09:03 [facility] 0.0 10 3/ul (missing) NRBC ABSOLUTE COUNT (AUTO) 2024-09-18 09:03 [facility] 0.00 x10 3/ul (missing) EOSINOPHILS # (AUTO) 2024-09-18 09:03 [facility] 0.2 10 3/ul (missing) BILIRUBIN,TOTAL 2024-09-18 09:03 [facility] 0.4 mg /dl As of October 2022 testing method has changed, this may include reference ranges. MONOCYTES # (AUTO) 2024-09-18 09:03 [facility] 0.8 10 3/ul (missing) LYMPHOCYTES # (AUTO) 2024-09-18 09:03 [facility] 0.9 10 3/ul (missing) ALBUMIN/GLOBULIN RATIO 2024-09-18 09:03 [facility] 1.2 (missing) (missing) MEAN PLATELET VOLUME 2024-09-18 09:03 [facility] 10.1 fl (missing) HGB - HEMOGLOBIN 2024-09-18 09:03 [facility] 10.7 g /dl (missing) CHLORIDE 2024-09-18 09:03 [facility] 106 mmol/l As of October 2022 testing method has changed, this may include reference ranges. LDL CHOLESTEROL,CALCULAT ED 2024-09-18 09:03 [facility] 111 mg/dl Social History date description facility 2024-09-04 00:00 Never smoked tobacco ([facility] Vital Signs date measurement value units 2024-07-15 00:00 BMI 34.0 kg/m2 2024-07-15 00:00 BP_diastolic 82 mmHg 2024-07-15 00:00 BP_systolic 144 mmHg 2024-07-15 00:00 heart_rate 93 /min 2024-07-15 00:00 height_metric 175.26 cm 2024-07-15 00:00 height_standard 69 in 2024-07-15 00:00 o2_saturation 97 % 2024-07-15 00:00 respiration_rate 16 /min 2024-07-15 00:00 weight_metric 104.32 kg 2024-07-15 00:00 weight_standard 229.99 lb 2024-09-04 00:00 BMI 34.0 kg/m2 2024-09-04 00:00 BP_diastolic 75 mmHg 2024-09-04 00:00 BP_systolic 135 mmHg 2024-09-04 00:00 heart_rate 93 /min 2024-09-04 00:00 height_metric 175.26 cm 2024-09-04 00:00 height_standard 69 in 2024-09-04 00:00 o2_saturation 95 % 2024-09-04 00:00 respiration_rate 16 /min 2024-09-04 00:00 weight_metric 104.32 kg 2024-09-04 00:00 weight_standard 229.99 lb
--- NOTE | 2024-09-28 14:05 | CT Report ---
PROCEDURE: CT Abdomen/Pelvis WO INDICATIONS: hematuria TECHNIQUE: A CT scan of the abdomen and pelvis was performed without the use of intravenous contrast. Images were recorded and evaluated at appropriate window settings. Reformats: coronal and sagittal. For radiation dose reduction, the following was used: automated exposure control, adjustment of mA and/or kV according to patient size. COMPARISON: None. FINDINGS: Image quality: Diagnostic. Lower chest: Unremarkable. Liver: No contour-deforming mass. Gallbladder: Biliary tree: No intrahepatic or extrahepatic dilation, accounting for age. Spleen: No splenomegaly. Pancreas: No pancreatic ductal dilation. Adrenals: No adrenal nodule. Kidneys and ureters: There is moderate bilateral hydronephrosis and hydroureter, extending to the UVJ. Stomach, bowel and peritoneum: No gastric or small bowel dilation. No abnormal wall thickening. No pathologic free fluid. Lymph nodes: Multiple enlarged periaortic nodes measuring up to 1.5 cm short [place]. Vessels: No infrarenal aortic aneurysm. Reproductive organs: There is prostatic enlargement measuring 6.5 x 6, with lobulated contours, and defined margins and probable involvement of the seminal vesicles and bladder base. Bladder: Collapse around a Daniels catheter, cannot be adequately assessed. Pelvic lymph nodes: Moderately large bilateral external/internal iliac nodes measuring up to 1 cm short [place]. Bones: Multiple sclerotic osseous lesions seen in the lumbar spine, ribs and pelvis. No definitive superimposed fracture. Other: No significant ventral or inguinal hernia. IMPRESSION: 1. Findings most suggestive of prostate cancer, with extracapsular extension, pelvic and retroperitoneal lymphadenopathy as well as metastatic osseous disease. 2. There is associated bladder outlet obstruction, with moderate bilateral hydronephrosis and hydroureter. Reviewed by: Dakotah Saenz MD on 09/28/2024 2:04 PM PDT Approved by: Dakotah Saenz MD on 09/28/2024 2:04 PM PDT Station ID: [id number]
[2024-09-28 14:33] LABS: BASOPHILS % (AUTO) 0.6 %; EOSINOPHILS # (AUTO) 0.1 10^3/uL (0.0-0.7); EOSINOPHILS % (AUTO) 1.2 %; HCT - HEMATOCRIT 30.5 % (42.0-52.0); LYMPHOCYTES # (AUTO) 0.5 10^3/uL (1.5-3.5); LYMPHOCYTES % (AUTO) 7.9 %; MEAN CORPUSCULAR HEMOGLOBIN 30.3 pg (27.0-31.0); MEAN CORPUSCULAR HGB CONC 32.8 g/dL (32.0-36.0); MEAN CORPUSCULAR VOLUME 92.4 fL (80.0-94.0); MONOCYTES # (AUTO) 0.9 10^3/uL (0.0-1.0); MONOCYTES % (AUTO) 12.6 %; NEUTROPHILS # (AUTO) 5.2 10^3/uL (1.5-6.6); NEUTROPHILS % (AUTO) 76.2 %; PLT - PLATELET COUNT 199 10^3/uL (130-450); RED CELL DISTRIBUTION WIDTH 14.3 % (12.0-15.0); WHITE BLOOD COUNT 6.8 x10^3/uL (4.8-10.8)
[2024-09-28 14:43] LABS: POTASSIUM 6.2 mmol/L (3.5-4.5)
[2024-09-28 14:47] LABS: ALBUMIN 3.9 g/dL (3.2-5.5); ALBUMIN/GLOBULIN RATIO 1.3 (1.0-2.2); BILIRUBIN,TOTAL 0.5 mg/dL (0.2-1.0); CALCIUM 8.9 mg/dL (8.5-10.3); CREATININE 3.2 mg/dL (0.6-1.3); TOTAL PROTEIN 6.8 g/dL (6.4-8.9)
[2024-09-28] MEDS: LIDOCAINE JELLY 2% 6 ML JEL.PF.APP TOP STA (14:57)
[2024-09-28] MEDS: INSULIN REGULAR, HUMAN 300 UNIT/3 ML PEN IVP STA ×2 (15:11→17:44)
[2024-09-28] MEDS: CALCIUM GLUC 1,000MG/50ML-NACL 1,000 MG/50 ML BAG IV STA (15:11)
[2024-09-28] MEDS: DEXTROSE 50% ABBOJECT 25 GM/50 ML SYRINGE IVP STA ×2 (15:11→17:44)
[2024-09-28] MEDS: SODIUM CHLORIDE 0.9% 1,000 ML IV STA (15:46)
--- NOTE | 2024-09-28 15:58 | CONSULTATION NOTE ---
Chief Complaint Chief Complaint Chief Complaint: hematuria, clot retention History of Present Illness Admitted From Admitted From:: ER History Obtained From Records Reviewed: Hospital History obtained from: patient Exam Limitations: none History of Present Illness HPI Comment/Other: Enoch is a 74-year-old male with complex urological history. He states he has been catheterizing for about 2 years intermittently. He has had a few issues with this including infections and hematuria. He states he had a urinary tract infection 4 months ago though his culture at this hospital was negative. He states that he sees Dr. Lang at [facility] for his urological care. Dr. Lang has been worried about infections though and he states he has been on a long course of antibiotics which have upset the patient's stomach. Last night he presented to the hospital here with inability to catheterize along with clots in the urine. A 16 [place] catheter was placed and irrigated to clear and he was sent home. He represented today with clot retention again in his catheter. Urology was consulted at that time. Imaging was performed today showing likely widely metastatic prostate cancer with retroperitoneal and pelvic lymphadenopathy and osseous metastasis. He also had an enlarged bladder with bilateral hydroureteronephrosis concerning for either bladder outlet obstruction/catheter obstruction versus locally invasive prostate cancer. Of note his GFR has significantly decreased with his most recent GFR being 19 down from his baseline of around 40. He is hyperkalemic with a potassium of 6.2. He has had multiple PSA testing over the years which shows an increase from around 5 a few years ago to 240 [address] Dr[address] Lang wanted to obtain an MRI of his prostate Of note the patient is a [employer] and refuses blood transfusion products. His hemoglobin is 10.0 down from his baseline which appears to be around 12-13 At the time of my assessment a new 22 [place] three-way Starr catheter was placed with some mild hematuria and clots in the bag but seem to be draining easily on medium drip continuous bladder irrigation PFSH Active Problems All Active Problems (Updated 09/28/24 @ 16:02 by Jaziel Guo MD) Hyperkalemia (Acute) Acute urethral obstruction (Acute) Hematuria (Acute) Diabetes mellitus with chronic kidney disease, with long-term current use of insulin (Acute) Insulin dependent diabetes mellitus (Acute) Chronic renal disease, stage 4, severely decreased glomerular filtration rate (GFR) between 15-29 mL/min/1.73 square meter (Acute) Family history of thyroid disease (Acute) Elevated alkaline phosphatase level (Acute) Tachycardia (Acute) Urinary retention (Acute) Hyperlipidemia (Acute) Essential hypertension, benign (Acute) Medical History Medical History Benign prostate hyperplasia Family History Family History Father High blood pressure Mother High blood pressure Social History Social History Smoking Status: Never smoker Do you dip or chew tobacco?: No Do you vape?: No Relationship: Do you feel safe in your home environment?: Yes Suffered physical, verbal, emotional, or financial abuse?: No History of Abuse: No ETOH Use: Beer Frequency: Occasional Substance Use: denies use POLST Patient has POLST: No Meds/Allgy Home Medications Ambulatory Orders Medication Instructions Recorded Confirmed vibegron 75 mg tablet (Gemtesa) 75 mg PO QDAY 03/25/24 09/28/24 finasteride 5 mg tablet 5 mg PO QDAY 09/24/24 glipizide 10 mg tablet, extended 10 mg PO QDAY 5 09/28/24 release 24 hr tadalafil 5 mg tablet 5 mg PO QDAY 09/24/24 tamsulosin 0.4 mg capsule 0.8 mg PO QDAY 09/24/2412/15 insulin glargine-yfgn 100 unit/mL 10 unit (0.1 mL) sub cut QPM 09/27/24 09/28/24 (3 mL) subcutaneous pen stopped metformin d/t CKD #1 5 mL pen needle, diabetic 31 gauge x #400 ea 09/27/2409/27 5/16" empagliflozin 10 mg tablet 10 mg PO DAILY 09/28/2412/15 (Jardiance) lisinopril 20 mg tablet 10 mg PO QDAY 09/28/2409/28 Allergies Allergies Allergy/AdvReac Type Severity Reaction Status Date / Time No Known Drug Allergies Allergy Verified 09/28/24 12:45 Results Lab Results Lab results reviewed: Yes 09/28/24 14:30 09/28/24 14:30 Other Lab Results: Lab Results x24hrs 09/28/24 Range/Units 14:30 WBC 6.8 (4.8-10.8) x10^3/uL RBC 3.30 L (4.70-6.10) 10^6/uL Hgb 10.0 L (14.0-18.0) g/dL Hct 30.5 L (42.0-52.0) % MCV 92.4 (80.0-94.0) fL MCH 30.3 (27.0-31.0) pg MCHC 32.8 (32.0-36.0) g/dL RDW 14.3 (12.0-15.0) % Plt Count 199 (130-450) 10^3/uL MPV 9.0 (7.4-11.4) fL Neut # (Auto) 5.2 (1.5-6.6) 10^3/uL Lymph # (Auto) 0.5 L (1.5-3.5) 10^3/uL [place] # (Auto) 0.9 (0.0-1.0) 10^3/uL Eos # (Auto) 0.1 (0.0-0.7) 10^3/uL Baso # (Auto) 0.0 (0.0-0.1) 10^3/uL Absolute Nucleated RBC 0.00 x10^3/uL Nucleated RBC % 0.0 /100WBC Sodium 132 L (135-145) mmol/L Potassium 6.2 H* (3.5-4.5) mmol/L Chloride 106 (101-111) mmol/L Carbon Dioxide 20 L (21-32) mmol/L Anion Gap 6.0 (6-13) BUN 50 H (6-20) mg/dL Creatinine 3.2 H (0.6-1.3) mg/dL Estimated GFR (MDRD) 19 L (>89) Glucose 152 H (74-104) mg/dL Calcium 8.9 (8.5-10.3) mg/dL Total Bilirubin 0.5 (0.2-1.0) mg/dL AST 21 (10-42) IU/L ALT 9 L (10-60) IU/L Alkaline Phosphatase 290 H (42-121) IU/L Total Protein 6.8 (6.4-8.9) g/dL Albumin 3.9 (3.2-5.5) g/dL Globulin 2.9 (2.1-4.2) g/dL Albumin/Globulin Ratio 1.3 (1.0-2.2) Lipase 23 (11-82) U/L Diagnostic Imaging Results Diagnostic Imaging Results: positive Read independently Exam Exam Vital Signs: Vital Signs x48h Temp Pulse Resp BP Pulse Ox 09/28/24 15:22 104 H 18 179/89 H 97 09/28/24 12:45 36.3 C L 102 H 18 157/83 H 96 NAD distended abdomen [address] with light pink/red tinged urine on medium drip CBI Conclusion/Plan Problem List (1) Hematuria: Plan: 74-year-old male with history of urinary retention requiring clean intermittent catheterization now presents with hematuria and clot retention. PSA [address] scan with clear evidence of widely metastatic prostate cancer. Bilateral hydronphrosis, LATISHA, hyperkalemia Qualifiers: Hematuria type: gross Qualified Code(s): R31.0 - Gross hematuria Plan He had a long discussion regarding his new pathology. We discussed that he very likely has metastatic prostate cancer. As there is no evidence of cord collapse at this time he does need a prostate biopsy to prove pathological diagnosis and move onto treatment. We did discuss treatment of metastatic prostate cancer including the baseline androgen deprivation therapy. We discussed the side effects and risks of this Patient remains in good spirits. We also discussed his bilateral hydroureteronephrosis and renal dysfunction. He will be admitted to the medical service for further monitoring. His catheter should remain in place. He should stay on continuous bladder irrigation for now. He should be irrigated as needed. Improvement in his hydronephrosis and renal function should be documented in the future with imaging and blood work. I will help follow-up to arrange this I will follow along while he is in the hospital. He knows to contact Dr. Lang to see if he can have an urgent prostate biopsy. I have offered my services if he cannot get this done in time. I also would perform this under light sedation whereas Dr. Lang may not JEHOVAHS WITNESS: We discussed that if he does become significantly anemic and require blood transfusion then we will not perform this under his wishes and he does understand that this will cause him to . There will be no other options to save him. I do not anticipate this but I will be available to take him for cystoscopy and clot evacuation if any concerns He is obtaining repeat blood work tomorrow morning Lab Results Lab results reviewed: Yes 09/28/24 14:30 09/28/24 14:30 Diagnostic Imaging Results Diagnostic Imaging Results: positive Read independently
[2024-09-28 17:17] LABS: CALCIUM 9.2 mg/dL (8.5-10.3); CREATININE 3.1 mg/dL (0.6-1.3)
[2024-09-28] MEDS: ALBUTEROL NEB 2.5 MG/3 ML INH STA (17:42)
--- OUTSIDE RECORDS SUMMARY | 2024-09-28 18:21 | EXTERNAL MEDICAL SUMMARY RPT | Continuity of Care Document ---
Author Organization [facility] Address [address] [place] [id number] Phone Care Team Providers Care Dietary Services Manager Name Role Phone Jessica Bradley Unavailable Unavailable Medications date description facility 2024-07-22 00:00 Cephalexin [facility] 2024-07-15 00:00 Lisinopril [facility] 2024-07-15 00:00 Metformin [facility] Problems date description facility 2024-07-15 10:25 Urinary tract infection, site n ot specified [facility] 2024-07-16 05:30 Urinary tract infection, site n ot specified [facility] 2024-07-16 12:49 Urinary tract infection, site n ot specified [facility] 2024-08-01 09:19 Urinary tract infection, site n ot specified [facility] 2024-08-28 13:21 Elevated prostate specific anti gen [PSA] [facility] 2024-08-29 00:05 Elevated prostate specific anti gen [PSA] [facility] 2024-09-04 00:00 History of urinary tract infect ion [facility] 2024-09-04 10:35 Elevated prostate specific anti gen [PSA] [facility] 2024-09-04 10:38 Elevated prostate specific anti gen [PSA] [facility] 2024-09-04 10:44 Elevated prostate specific anti gen [PSA] [facility] 2024-09-05 10:58 Elevated prostate specific anti gen [PSA] [facility] 2024-09-09 09:37 Elevated prostate specific anti gen [PSA] [facility] 2024-09-18 08:42 Type 2 diabetes andreas itus with unspecified complications [facility] 2024-09-18 08:42 Essential (primary) hypertensio [facility] 2024-09-18 08:43 Type 2 diabetes andreas itus with unspecified complications [facility] 2024-09-18 08:43 Essential (primary) hypertensio [facility] 2024-09-19 00:06 Type 2 diabetes andreas itus with unspecified complications [facility] 2024-09-19 00:06 Essential (primary) hypertensio n [facility] 2024-09-23 12:25 Essential (primary) hypertensio n [facility] 2024-09-25 00:01 Abnormal levels of other serum enzymes [facility] 2024-09-25 00:01 Family history of ot her endocrine, nutritional and metabolic diseases [facility] 2024-09-28 16:04 Hyperkalemia [facility] 2024-09-28 16:04 Gross hematuria [facility] 2024-09-28 16:38 Hyperkalemia [facility] 2024-09-28 16:38 Gross hematuria [facility] 2024-09-28 16:39 Hyperkalemia [facility] 2024-09-28 16:39 Gross hematuria [facility] Results/Labs test date facility value unit notes Result panel 1 Urine Culture 2024-07-16 08:40 [facility] (missing) (missing) (missing) [facility] 2024-07-16 08:40 [facility] Very Early Growth: Culture too young for work-up reincubated (missing) Comment CHECK FOR SENSITIVIES Result panel 2 Urine Culture 2024-07-17 07:46 [facility] (missing) (missing) (missing) [facility] 2024-07-17 07:46 [facility] Very Early Growth: Culture too young for work-up reincubated (missing) Comment CHECK FOR SENSITIVIES Result panel 3 [facility] 2024-07-18 07:20 [facility] >100,000 cfu/ml (missing) Ampicillin 2024-07-18 07:20 [facility] >=32 (missing) (missing) Levofloxacin 2024-07-18 07:20 [facility] <=0.12 (missing) (missing) Ciprofloxacin 2024-07-18 07:20 [facility] <=0.25 (missing) (missing) Imipenem 2024-07-18 07:20 [facility] <=0.25 (missing) (missing) Ertapenem 2024-07-18 07:20 [facility] <=0.5 (missing) (missing) Cefepime 2024-07-18 07:20 [facility] <=1 (missing) (missing) Ceftazidime 2024-07-18 07:20 [facility] <=1 (missing) (missing) Ceftriaxone 2024-07-18 07:20 [facility] <=1 (missing) (missing) Gentamicin 2024-07-18 07:20 [facility] <=1 (missing) (missing) Tobramycin 2024-07-18 07:20 [facility] <=1 (missing) (missing) Amoxicillin/Clavul anate 2024-07-18 07:20 [facility] <=2 (missing) (missing) Trimethoprim/Sulfa methoxazole 2024-07-18 07:20 [facility] <=20 (missing) (missing) Cefazolin 2024-07-18 07:20 [facility] <=4 (missing) (missing) Nitrofurantoin 2024-07-18 07:20 [facility] 32 (missing) (missing) Ampicillin/Sulbact am 2024-07-18 07:20 [facility] 8 (missing) (missing) ORGANISM 2024-07-18 07:20 [facility] KLEOXYKlebsiella oxytoca (missing) Comment CHECK FOR SENSITIVIES Action to follow 2024-07-18 07:20 [facility] No Further Workup (missing) (missing) Result panel 4 PSA TOTAL 2024-08-28 13:30 [facility].673 ng/ml [facility] uses a WHO cutoff value of 2.0 ng/mL. Result panel 5 [facility] Count 2024-09-05 08:10 [facility] >100,000 cfu/ml (missing) ORGANISM 2024-09-05 08:10 [facility] GNBGram negative bacilli (missing) (missing) Action to follow 2024-09-05 08[facility]10 [facility] to Follow (missing) (missing) Result panel 6 Urine Culture 2024-09-06 09:01 [facility] ([facility]) (missing) (missing) [facility] Count 2024-09-06 09[facility]01 [facility]000 [facility]fu/ml (missing) Ampicillin 2024-09-06 09:01 [facility] >=32 (missing) (missing) Ciprofloxacin 2024-09-06 09:01 [facility] <=0.06 (missing) (missing) Ertapenem 2024-09-06 09:01 [facility] <=0.12 (missing) (missing) Levofloxacin 2024-09-06 09:01 [facility] <=0.12 (missing) (missing) Ceftriaxone 2024-09-06 09:01 [facility] <=0.25 (missing) (missing) Meropenem 2024-09-06 09:01 [facility] <=0.25 (missing) (missing) Gentamicin 2024-09-06 09:01 [facility] <=1 (missing) (missing) Tetracycline 2024-09-06 09:01 [facility] <=1 (missing) (missing) Nitrofurantoin 2024-09-06 09:01 [facility] <=16 (missing) (missing) Amoxicillin/Clavula kailash 2024-09-06 09:01 [facility] <=2 (missing) (missing) Trimethoprim/Sulfam ethoxazole 2024-09-06 09:01 [facility] <=20 (missing) (missing) Urine Culture 2024-09-06 09:01 [facility] Isolates that test susceptible to tetracycline are (missing) (missing) ORGANISM 2024-09-06 09:01 [facility] KLEOXYKlebsiella oxytoca (missing) (missing) Action to follow 2024-09-06 09:01 [facility] No Further Workup (missing) (missing) Urine Culture 2024-09-06 09:01 [facility] considered susceptible to doxycycline and minocycline. (missing) (missing) Result panel 7 NUCLEATED RED BLOOD CELLS AUTO 2024-09-18 09:03 [facility] 0.0 /100wbc (missing) BASOPHILS # (AUTO) 2024-09-18 09:03 [facility] 0.0 10 3/ul (missing) NRBC ABSOLUTE COUNT (AUTO) 2024-09-18 09:03 [facility] 0.00 x10 3/ul (missing) EOSINOPHILS # (AUTO) 2024-09-18 09:03 [facility] 0.2 10 3/ul (missing) BILIRUBIN,TOTAL 2024-09-18 09:03 [facility] 0.4 mg /dl As of October 2022 testing method has changed, this may include reference ranges. MONOCYTES # (AUTO) 2024-09-18 09:03 [facility] 0.8 10 3/ul (missing) LYMPHOCYTES # (AUTO) 2024-09-18 09:03 [facility] 0.9 10 3/ul (missing) ALBUMIN/GLOBULIN RATIO 2024-09-18 09:03 [facility] 1.2 (missing) (missing) MEAN PLATELET VOLUME 2024-09-18 09:03 [facility] 10.1 fl (missing) HGB - HEMOGLOBIN 2024-09-18 09:03 [facility] 10.7 g /dl (missing) CHLORIDE 2024-09-18 09:03 [facility] 106 mmol/l As of October 2022 testing method has changed, this may include reference ranges. LDL CHOLESTEROL,CALCULAT ED 2024-09-18 09:03 [facility] 111 mg/dl Social History date description facility 2024-09-04 00:00 Never smoked tobacco ([facility] Vital Signs date measurement value units [...]
[2024-09-28] MEDS ORDERED: ONDANSETRON ODT 4 MG TABLET TL PRN (18:28)
--- NOTE | 2024-09-28 18:29 | HISTORY & PHYSICAL EXAMINATION ---
Chief Complaint Chief Complaint Chief Complaint: hematuria History of Present Illness Admitted From Admitted From:: home History Obtained From Records Reviewed: last family practice visit, ED visits, today and overnight. History obtained from: Patient. History of Present Illness HPI Comment/Other: 74-year-old male who presents to the emergency department today with complaints of hematuria. He has a past medical history of chronic urinary retention with self cathing, diabetes, hypertension, renal insufficiency. He was in our facility approximately 12 hours prior with inability to straight cath himself and increasing hematuria over the last several days. A Daniels catheter was placed, irrigated until clear and the patient was discharged to home. Then this morning he noted increasing hematuria and then had the sensation of fullness in his bladder although he had the Daniels in place. He therefore re presented to the emergency department with acute urinary retention. He does not take any aspirin or Plavix. he is not on any blood thinners. Socially, he lives on his [address] [facility] which has been in his family since settlement. 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 He has several of his children that live on the property with him. He is a Religion and as such does not want any blood products. His Sera is his surrogate medical decision maker. He does not have a POLST on file. He wishes for full CODE STATUS. He states to me that he is a "liver not a dier". He wants something done if there is any hope at all for his life to be maintained. He would not want to be dependent upon machines to live, but he trusts his family to make the right decision. Meds/Allgy Home Medications Ambulatory Orders Medication Instructions Recorded Confirmed vibegron 75 mg tablet (Gemtesa) 75 mg PO QDAY 03/25/24 09/28/24 finasteride 5 mg tablet 5 mg PO QDAY 09/24/24 glipizide 10 mg tablet, extended 10 mg PO QDAY 5 09/28/24 release 24 hr tadalafil 5 mg tablet 5 mg PO QDAY 09/24/24 tamsulosin 0.4 mg capsule 0.8 mg PO QDAY 09/24/2412/15 insulin glargine-yfgn 100 unit/mL 10 unit (0.1 mL) sub cut QPM 09/27/24 09/28/24 (3 mL) subcutaneous pen stopped metformin d/t CKD #1 5 mL pen needle, diabetic 31 gauge x #400 ea 09/27/2409/27/16" empagliflozin 10 mg tablet 10 mg PO DAILY 09/28/2412/15 (Jardiance) lisinopril 20 mg tablet 10 mg PO QDAY 09/28/2409/28 Allergies Allergies Allergy/AdvReac Type Severity Reaction Status Date / Time No Known Drug Allergies Allergy Verified 09/28/24 12:45 PFSH Active Problems All Active Problems (Updated 09/28/24 @ 18:50 by JEREMIAS Ureña) Hypertension (Acute) Acute kidney injury (Acute) Prostate mass (Acute) Acute urethral obstruction (Acute) Hematuria (Acute) Acute hyperkalemia (Acute) Hyperkalemia (Acute) Acute urethral obstruction (Acute) Hematuria (Acute) Diabetes mellitus with chronic kidney disease, with long-term current use of insulin (Acute) Insulin dependent diabetes mellitus (Acute) Chronic renal disease, stage 4, severely decreased glomerular filtration rate (GFR) between 15-29 mL/min/1.73 square meter (Acute) Family history of thyroid disease (Acute) Elevated alkaline phosphatase level (Acute) Tachycardia (Acute) Urinary retention (Acute) Hyperlipidemia (Acute) Essential hypertension, benign (Acute) Medical History Medical History Benign prostate hyperplasia Family History Family History Father High blood pressure Mother High blood pressure Social History Social History Smoking Status: Never smoker Do you dip or chew tobacco?: No Do you vape?: No Relationship: Level: Independent Do you feel safe in your home environment?: Yes Suffered physical, verbal, emotional, or financial abuse?: No History of Abuse: No ETOH Use: Beer Frequency: Occasional Substance Use: denies use POLST Patient has POLST: No POLST Status: Full Code Review of Systems Status of ROS: 10 or more systems reviewed and unremarkable except as noted in history and below Prior Level of Functionality: independent, 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 Decision was made to admit this patient to observation status for treatment of his acute hyperkalemia which is likely secondary to his acute kidney injury which is likely secondary to his acute urethral obstruction. Urology has been consulted and has recommended continuous bladder irrigation after placing a Daniels in the emergency department. Urology will continue to follow along both for assistance with management of the catheter and monitoring of the hydronephrosis. This patient has had a recent PSA of 240. Prostate MRI has been recommended in the outpatient environment. It is likely that his bladder outlet obstruction is secondary to a prostate cancer which is as yet undiagnosed. He in the ED he has been given 2 rounds of hyperkalemia treatment which include albuterol nebulizer, 1 amp of D50 IV and 10 units of regular insulin IV. This has brought his potassium down to 5.0. I will check his potassium again at 2100. I have ordered 1 dose of Lokelma to be given on arrival to the floor. I will treat him with additional rounds of hyperkalemia protocol as indicated for potassium greater than 5. (2) Acute kidney injury: Plan: Acute kidney injury likely secondary to bladder outlet obstruction. This patient's baseline creatinine is likely 1.7-1.8. He has had an increase over the past several weeks, likely secondary to bladder outlet obstruction. 12/22/23 09/18/24 09/28/24 09:08 09:03 14:30 Creatinine 1.8 H 2.8 H 3.2 H 09/28/24 17:00 Creatinine 3.1 H (3) Acute urethral obstruction: Plan: CT of the abdomen pelvis show likely prostate cancer with extracapsular extension tension, pelvic and retroperitoneal lymphadenopathy as well as metastatic osseous disease. The prostate is 6.5 x 6 cm with lobulated contours. Multiple sclerotic lesions are seen in the lumbar spine, ribs and pelvis. There is no pathologic fracture identified on the CT. There is associated bladder outlet obstruction with moderate bilateral hydronephrosis and hydroureter seen on CT. This patient has acute urethral obstruction secondary likely to prostate cancer. He currently has a Daniels in place and continuous bladder irrigation due to gross hematuria and clotting. He has been performing intermittent self-catheterization for about 2 years secondary to difficulty passing his urine. Urology will follow along and assist with further management and treatment. (4) Diabetes mellitus with chronic kidney disease, with long-term current use of insulin: Plan: This patient has a long history of diabetes. Most recent hemoglobin A1c was 7.4% on 09/18/2024. His PCP recently took him off of metformin but he has remained on sulfonylurea and Jardiance treatment. Glargine insulin has also been started at home. While he is here in the hospital I will start him on glargine 10 units nightly along with sliding scale insulin to be escalated as indicated. Qualifiers: Chronic kidney disease stage: stage 4 (GFR 15-29) Diabetes mellitus type: type 2 Qualified Code(s): E11.22 - Type 2 diabetes mellitus with diabetic chronic kidney disease; N18.4 - Chronic kidney disease, stage 4 (severe); Z79.4 - continuous churn buttermaker (current) use of insulin (5) Hypertension: Plan: He takes lisinopril at home. I believe his dose is 10 mg currently he was in the process of switching to 20 mg. I am going to hold the lisinopril in light of his acute kidney injury. I have ordered Hydralazine 10mg IVP q4h PRN sBP >160 Plan This patient will be admitted to observation. He is being admitted for his hyperkalemia and acute kidney injury secondary to bladder outlet obstruction. . I will place SCDs and hold chemical DVT prophylaxis due to hematuria I have spent 85 minutes in the care of this patient today. This includes time [id number], review and ordering of diagnostic imaging and laboratory studies and consultation with other providers. Monitoring the patient's signs symptoms, evaluation of medication effectiveness and patient's response to treatment. Lab Results Lab results reviewed: Yes 09/28/24 14:30 09/28/24 17:00 EKG Results EKG Interpreted Independently: Yes EKG Findings: no ischemia, no peaked T waves Core Measures Anticipated LOS I expect patient to be DC'd or transferred within 96 hours.: Yes DVT/VTE - Prophylaxis VTE/DVT Device ordered at admit?: Yes VTE/DVT Prophylaxis med ordered at admit?: No
[2024-09-28] MEDS ORDERED: SODIUM ZIRCONIUM CYCLOSILICATE 5 GM PACKET PO SCH (19:00)
[2024-09-28] MEDS ORDERED: hydrALAZINE INJ 20 MG/ML VIAL IVP PRN (19:42)
[2024-09-28] MEDS: oxyCODONE 5 MG TABLET PO PRN (20:38)
[2024-09-28] MEDS ORDERED: HYDROmorphone 0.5 MG/0.5 ML SYRINGE ONE (20:46)
[2024-09-28] MEDS: HYDROmorphone 0.5 MG/0.5 ML SYRINGE IVP PRN (20:50)
[2024-09-28] MEDS: SODIUM CHLORIDE FLUSH 0.9% 10 ML SYRINGE IVP PRN (20:50)
[2024-09-28] MEDS ORDERED: HEPARIN 5,000 UNIT/ML VIAL SUBQ SCH (21:00)
[2024-09-28 21:17] LABS: CALCIUM 9.2 mg/dL (8.5-10.3); CREATININE 3.2 mg/dL (0.6-1.3); POTASSIUM 5.2 mmol/L (3.5-4.5)
[2024-09-28] MEDS: DEXTROSE 50% ABBOJECT 25 GM/50 ML SYRINGE IVP ONE (23:15)
[2024-09-28] MEDS: SODIUM ZIRCONIUM CYCLOSILICATE 5 GM PACKET PO ONE (23:15)
[2024-09-28] MEDS: INSULIN GLARGINE-YFGN 300 UNIT/3 ML PEN SUBQ SCH (23:16)
[2024-09-28] MEDS: INSULIN REGULAR, HUMAN 300 UNIT/3 ML PEN IVP ONE (23:17)
[2024-09-29] MEDS: SODIUM CHLORIDE FLUSH 0.9% 10 ML SYRINGE IVP SCH (00:03)
[2024-09-29] MEDS: CONCENTRATED ALBUTEROL NEB 2.5 MG/0.5 ML INH STA (00:06)
[2024-09-29 05:04] LABS: BASOPHILS % (AUTO) 0.4 %; EOSINOPHILS % (AUTO) 0.4 %; HGB - HEMOGLOBIN 8.9 g/dL (14.0-18.0); LYMPHOCYTES # (AUTO) 0.7 10^3/uL (1.5-3.5); LYMPHOCYTES % (AUTO) 8.7 %; MEAN CORPUSCULAR HEMOGLOBIN 29.7 pg (27.0-31.0); MEAN CORPUSCULAR HGB CONC 31.8 g/dL (32.0-36.0); MEAN CORPUSCULAR VOLUME 93.3 fL (80.0-94.0); MEAN PLATELET VOLUME 9.1 fL (7.4-11.4); MONOCYTES # (AUTO) 1.3 10^3/uL (0.0-1.0); MONOCYTES % (AUTO) 15.2 %; NEUTROPHILS # (AUTO) 6.2 10^3/uL (1.5-6.6); NEUTROPHILS % (AUTO) 73.5 %; PLT - PLATELET COUNT 196 10^3/uL (130-450); RED CELL DISTRIBUTION WIDTH 14.6 % (12.0-15.0); WHITE BLOOD COUNT 8.4 x10^3/uL (4.8-10.8)
[2024-09-29 05:18] LABS: CALCIUM 8.8 mg/dL (8.5-10.3); CREATININE 3.3 mg/dL (0.6-1.3); POTASSIUM 5.5 mmol/L (3.5-4.5)
[2024-09-29] MEDS: SODIUM ZIRCONIUM CYCLOSILICATE 5 GM PACKET PO SCH (08:08)
--- NOTE | 2024-09-29 09:12 | PROVIDER PROGRESS NOTE ---
Subjective Prog Note Date Prog Note Date: 09/29/24 Prog Note Time: 09:08 Subjective Pt reports feeling: No change Subjective: Patient had some issues with clotting overnight requiring irrigation Current Medications Current Medications Current Medications: Current Medications Generic Name Dose Route Start Last Admin Trade Name Freq PRN Reason Stop Dose Admin Acetaminophen 650 mg 09/28/24 18:28 Acetaminophen 325 Mg Tablet PO Q4HR PRN Pain 1 to 4, or Fever Hydralazine HCl 10 mg 09/28/24 19:42 Hydralazine Inj 20 Mg/Ml Vial IVP Q4H PRN SBP> or= 160 OR DBP> or= 110 Hydromorphone HCl 0.5 mg 09/28/24 20:45 09/29/24 00:02 Hydromorphone 0.5 Mg/0.5 Ml Syringe IVP 0.5 mg Q2H PRN Administration Severe Pain (Level 7-10) Insulin Glargine-yfgn 10 unit 09/28/24 21:00 09/28/24 23:16 Insulin Glargine-Yfgn 300 Unit/3 Ml Pen SUBQ 10 unit QPM RIOS Administration Ondansetron HCl 4 mg 09/28/24 18:28 Ondansetron Odt 4 Mg Tablet TL Q6HR PRN Nausea / Vomiting Oxycodone HCl 5 mg 09/28/24 18:28 09/29/24 02:02 Oxycodone 5 Mg Tablet PO 5 mg Q4HR PRN Administration Pain 5 to 7 Sodium Chloride 10 ml 09/28/24 18:28 09/28/24 20:50 Sodium Chloride Flush 0.9% 10 Ml Syringe IVP 10 ml PRN PRN Administration NEEDED PER PROVIDER ORDERS Sodium Chloride 10 ml 09/29/24 01:00 09/29/24 08:08 Sodium Chloride Flush 0.9% 10 Ml Syringe IVP 10 ml 0100,0900,1700 RIOS Administration Sodium Zirconium Cyclosilicate 10 gm 09/29/24 09:00 09/29/24 08:08 Sodium Zirconium Cyclosilicate 5 Gm Packet PO 10 gm BID RIOS Administration Objective Vital Signs/Intake & Output Reviewed Vital Signs: Yes Vital Signs: Vital Signs x48h Temp Pulse Pulse Resp BP BP Pulse Ox 09/29/24 08:24 37.1 C 105 H 18 145/72 H 98 09/29/24 04:51 37.2 C 91 16 140/82 H 98 09/29/24 01:08 122 H 15 Intake & Output: Intake & Output 09/26/24 09/27/24 09/28/24 09/29/24 23:59 23:59 23:59 23:59 Intake Total 26016 / 26448 50699 / 28254 Output Total 48208 / 22223 32251 / 36208 Balance 725 / -75 -37024 / -72234 Weight (kg) 105.5 kg Objective General Appearance: positive No acute distress (Hemoglobin dropped to 8.9, creatinine remains elevated at 3.3. Potassium slightly elevated 5.5) Respiratory: positive Breath sounds nml Cardiovascular: positive Regular rate & rhythm Abdomen: positive Other (Three-way Daniels catheter in place with light pink/red- tinged urine on slow drip CBI) Lab Results 09/29/24 04:42 09/29/24 04:42 Other Labs: Lab Results x24hrs 09/29/24 09/29/24 09/28/24 Range/Units 07:45 04:42 21:41 WBC 8.4 (4.8-10.8) x10^3/uL RBC 3.00 L (4.70-6.10) 10^6/uL Hgb 8.9 L (14.0-18.0) g/dL Hct 28.0 L (42.0-52.0) % MCV 93.3 (80.0-94.0) fL MCH 29.7 (27.0-31.0) pg MCHC 31.8 L (32.0-36.0) g/dL RDW 14.6 (12.0-15.0) % Plt Count 196 (130-450) 10^3/uL MPV 9.1 (7.4-11.4) fL Neut # (Auto) 6.2 (1.5-6.6) 10^3/uL Lymph # (Auto) 0.7 L (1.5-3.5) 10^3/uL Valencia # (Auto) 1.3 H (0.0-1.0) 10^3/uL Eos # (Auto) 0.0 (0.0-0.7) 10^3/uL Baso # (Auto) 0.0 (0.0-0.1) 10^3/uL Absolute Nucleated RBC 0.00 x10^3/uL Nucleated RBC % 0.0 /100WBC Sodium 136 (135-145) mmol/L Potassium 5.5 H (3.5-4.5) mmol/L Chloride 107 (101-111) mmol/L Carbon Dioxide 21 (21-32) mmol/L Anion Gap 8.0 (6-13) BUN 48 H (6-20) mg/dL Creatinine 3.3 H (0.6-1.3) mg/dL Estimated GFR (MDRD) 18 L (>89) Glucose 175 H (74-104) mg/dL POC Whole Bld Glucose 228 150 (70-100) mg/dL Calcium 8.8 (8.5-10.3) mg/dL Total Bilirubin (0.2-1.0) mg/dL AST (10-42) IU/L ALT (10-60) IU/L Alkaline Phosphatase (42-121) IU/L Total Protein (6.4-8.9) g/dL Albumin (3.2-5.5) g/dL Globulin (2.1-4.2) g/dL Albumin/Globulin Ratio (1.0-2.2) Lipase (11-82) U/L 09/28/24 09/28/24 09/28/24 Range/Units 20:57 17:00 14:30 WBC 6.8 (4.8-10.8) x10^3/uL RBC 3.30 L (4.70-6.10) 10^6/uL Hgb 10.1 L 10.0 L (14.0-18.0) g/dL Hct 30.5 L (42.0-52.0) % MCV 92.4 (80.0-94.0) fL MCH 30.3 (27.0-31.0) pg MCHC 32.8 (32.0-36.0) g/dL RDW 14.3 (12.0-15.0) % Plt Count 199 (130-450) 10^3/uL MPV 9.0 (7.4-11.4) fL Neut # (Auto) 5.2 (1.5-6.6) 10^3/uL Lymph # (Auto) 0.5 L (1.5-3.5) 10^3/uL Valencia # (Auto) 0.9 (0.0-1.0) 10^3/uL Eos # (Auto) 0.1 (0.0-0.7) 10^3/uL Baso # (Auto) 0.0 (0.0-0.1) 10^3/uL Absolute Nucleated RBC 0.00 x10^3/uL Nucleated RBC % 0.0 /100WBC Sodium 134 L 135 132 L (135-145) mmol/L Potassium 5.2 H 5.0 H 6.2 H* (3.5-4.5) mmol/L Chloride 106 108 106 (101-111) mmol/L Carbon Dioxide 18 L 20 L 20 L (21-32) mmol/L Anion Gap 10.0 7.0 6.0 (6-13) BUN 48 H 48 H 50 H (6-20) mg/dL Creatinine 3.2 H 3.1 H 3.2 H (0.6-1.3) mg/dL Estimated GFR (MDRD) 19 L 20 L 19 L (>89) Glucose 168 H 76 152 H (74-104) mg/dL POC Whole Bld Glucose (70-100) mg/dL Calcium 9.2 9.2 8.9 (8.5-10.3) mg/dL Total Bilirubin 0.5 (0.2-1.0) mg/dL AST 21 (10-42) IU/L ALT 9 L (10-60) IU/L Alkaline Phosphatase 290 H (42-121) IU/L Total Protein 6.8 (6.4-8.9) g/dL Albumin 3.9 (3.2-5.5) g/dL Globulin 2.9 (2.1-4.2) g/dL Albumin/Globulin Ratio 1.3 (1.0-2.2) Lipase 23 (11-82) U/L ABX Reporting Has patient been on IV antibiotics over the past 48 hours?: No Assessment/Plan Problem List (1) Hematuria: Impression: Persistent hematuria, worsening anemia. Worship He clinically looks well and we did discuss this. That being said I am worried that in a few days time he will lose his remaining reserve. I do recommend a cystoscopy, fulguration of bleeding areas, clot evacuation, possible bilateral ureteral stent placement to prevent further bleeding. The risk, benefits, alternatives were discussed. Specific risks of bleeding, infection, need for additional procedures, failure of therapy, anesthesia risk were discussed The patient states understanding and consents to the above plan. His son (who is one of the power of claim attorney's) is also present and consents to the above plan He must have treatment for his likely prostate cancer soon Qualifiers: Hematuria type: gross Qualified Code(s): R31.0 - Gross hematuria (2) Acute kidney injury: Impression: Concern for bilateral ureteral obstruction given the continued LATISHA, and so I will likely place stents. However if this increases the bleeding risk then I will remove the stents or not place them at all. He can always have nephrostomy tubes with a lower risk of bleeding
--- NOTE | 2024-09-29 10:20 | ANESTHESIA PROCEDURE NOTE ---
Pre-Anesthesia VS, & Labs Diagnosis Surgical Diagnosis:: hematuria, anemia, prostate CA Procedure Procedure: cystoscopy, clot evacuation, fulguration of bleeding, possible B stent placement Vitals Vital Signs: Temp Pulse Resp BP Pulse Ox 37.1 C 105 H 18 145/72 H 98 09/29/24 08:24 09/29/24 08:24 09/29/24 08:24 09/29/24 08:24 09/29/24 08:24 NPO Last Fluid Intake: 6oz hot cocoa at 0600 Lab Results Current Lab Results: Laboratory Tests 09/29/24 07:45: POC Whole Bld Glucose 228 09/29/24 04:42: WBC 8.4, RBC 3.00 L, Hgb 8.9 L, Hct 28.0 L, MCV 93.3, MCH 29.7, MCHC 31.8 L, RDW 14.6, Plt Count 196, MPV 9.1, Neut # (Auto) 6.2, Lymph # (Auto) 0.7 L, [place] # (Auto) 1.3 H, Eos # (Auto) 0.0, Baso # (Auto) 0.0, Absolute Nucleated RBC 0.00, Nucleated RBC % 0.0, Sodium 136, Potassium 5.5 H, Chloride 107, Carbon Dioxide 21, Anion Gap 8.0, BUN 48 H, Creatinine 3.3 H, Estimated GFR (MDRD) 18 L, Glucose 175 H, Calcium 8.8 09/28/24 21:41: POC Whole Bld Glucose 150 09/28/24 20:57: Hgb 10.1 L, Sodium 134 L, Potassium 5.2 H, Chloride 106, Carbon Dioxide 18 L, Anion Gap 10.0, BUN 48 H, Creatinine 3.2 H, Estimated GFR (MDRD) 19 L, Glucose 168 H, Calcium 9.2 09/28/24 17:00: Sodium 135, Potassium 5.0 H, Chloride 108, Carbon Dioxide 20 L, Anion Gap 7.0, BUN 48 H, Creatinine 3.1 H, Estimated GFR (MDRD) 20 L, Glucose 76, Calcium 9.2 09/28/24 14:30: WBC 6.8, RBC 3.30 L, Hgb 10.0 L, Hct 30.5 L, MCV 92.4, MCH 30.3, MCHC 32.8, RDW 14.3, Plt Count 199, MPV 9.0, Neut # (Auto) 5.2, Lymph # (Auto) 0.5 L, [place] # (Auto) 0.9, Eos # (Auto) 0.1, Baso # (Auto) 0.0, Absolute Nucleated RBC 0.00, Nucleated RBC % 0.0, Sodium 132 L, Potassium 6.2 H*, Chloride 106, Carbon Dioxide 20 L, Anion Gap 6.0, BUN 50 H, Creatinine 3.2 H, E stimated GFR (MDRD) 19 L, Glucose 152 H, Calcium 8.9, Total Bilirubin 0.5, AST 21, ALT 9 L, Alkaline Phosphatase 290 H, Total Protein 6.8, Albumin 3.9, Globulin 2.9, Albumin/Globulin Ratio 1.3, Lipase 23 Lab results reviewed: Yes 09/29/24 04:42 09/29/24 04:42 Meds/Allgy Home Medications Ambulatory Orders Medication Instructions Recorded Confirmed vibegron 75 mg tablet (Gemtesa) 75 mg PO QDAY 03/25/24 09/28/24 finasteride 5 mg tablet 5 mg PO QDAY 09/24/24 glipizide 10 mg tablet, extended 10 mg PO QDAY 5 09/28/24 release 24 hr tadalafil 5 mg tablet 5 mg PO QDAY 09/24/24 tamsulosin 0.4 mg capsule 0.8 mg PO QDAY 09/24/2412/15 insulin glargine-yfgn 100 unit/mL 10 unit (0.1 mL) sub cut QPM 09/27/24 09/28/24 (3 mL) subcutaneous pen stopped metformin d/t CKD #1 5 mL pen needle, diabetic 31 gauge x #400 ea 09/27/2409/27 5/16" empagliflozin 10 mg tablet 10 mg PO DAILY 09/28/2412/15 (Jardiance) lisinopril 20 mg tablet 10 mg PO QDAY 09/28/2409/28 Allergies Allergies Allergy/AdvReac Type Severity Reaction Status Date / Time No Known Drug Allergies Allergy Verified 09/28/24 12:45 PFSH Active Problems All Active Problems (Updated 09/29/24 @ 10:15 by Pablo Logan DNP) ABLA (acute blood loss anemia) (Acute) Hypertension (Acute) Acute kidney injury (Acute) Prostate mass (Acute) Acute urethral obstruction (Acute) Hematuria (Acute) Acute hyperkalemia (Acute) Hyperkalemia (Acute) Acute urethral obstruction (Acute) Hematuria (Acute) Diabetes mellitus with chronic kidney disease, with long-term current use of insulin (Acute) Insulin dependent diabetes mellitus (Acute) Chronic renal disease, stage 4, severely decreased glomerular filtration rate (GFR) between 15-29 mL/min/1.73 square meter (Acute) Family history of thyroid disease (Acute) Elevated alkaline phosphatase level (Acute) Tachycardia (Acute) Urinary retention (Acute) Hyperlipidemia (Acute) Essential hypertension, benign (Acute) Medical History Medical History Benign prostate hyperplasia Family History Family History Father High blood pressure Mother High blood pressure Social History Social History Smoking Status: Never smoker Do you dip or chew tobacco?: No Do you vape?: No Relationship: Level: Independent Do you feel safe in your home environment?: Yes Suffered physical, verbal, emotional, or financial abuse?: No History of Abuse: No ETOH Use: Beer Frequency: Occasional Substance Use: denies use POLST Patient has POLST: No POLST Status: Full Code Anesthesia Exam (Expanded) Exam General: Alert, Oriented x3 and Cooperative Dental: WNL Mouth Openin Fingerbreadth Neck Mobility: Normal Mallampati classification: II Thyromental Distance: 4-6 cm Respiratory: Lungs clear, Normal breath sounds and No respiratory distress Cardiovascular: Regular rate Neurological: Normal speech Mental/Cognitive Status: Alert/Oriented X3 and Normal for patient Cognitive Status: Within normal limits Exam Exam Vital Signs: Vital Signs x48h Temp Pulse Resp BP BP Pulse Ox 09/29/24 08:24 37.1 C 105 H 18 145/72 H 98 09/29/24 04:51 37.2 C 91 16 140/82 H 98 Plan Problem List (1) Hematuria: Qualifiers: Hematuria type: gross Qualified Code(s): R31.0 - Gross hematuria (2) Acute kidney injury: Plan: Acute kidney injury likely secondary to bladder outlet obstruction. This patient's baseline creatinine is likely 1.7-1.8. He has had an increase over the past several weeks, likely secondary to bladder outlet obstruction. 12/22/23 09/18/24 09/28/24 09:08 09:03 14:30 Creatinine 1.8 H 2.8 H 3.2 H 09/28/24 17:00 Creatinine 3.1 H Plan This patient will be admitted to observation. He is being admitted for his hyperkalemia and acute kidney injury secondary to bladder outlet obstruction. . I will place SCDs and hold chemical DVT prophylaxis due to hematuria I have spent 85 minutes in the care of this patient today. This includes time [id number], review and ordering of diagnostic imaging and laboratory studies and consultation with other providers. Monitoring the patient's signs symptoms, evaluation of medication effectiveness and patient's response to treatment. Plan Anesthesia Type: General Consent for Procedure(s) Verified and Reviewed: Yes Code Status: Attempt Resuscitation ASA Classification ASA classification: 3-Severe systemic disease Is this case an emergency?: No
--- NOTE | 2024-09-29 10:24 | PROVIDER PROGRESS NOTE ---
Subjective Prog Note Date Prog Note Date: 09/29/24 Subjective Pt reports feeling: Improved Current Medications Current Medications Current Medications: Current Medications Generic Name Dose Route Start Last Admin Trade Name Freq PRN Reason Stop Dose Admin Acetaminophen 650 mg 09/28/24 18:28 Acetaminophen 325 Mg Tablet PO Q4HR PRN Pain 1 to 4, or Fever Hydralazine HCl 10 mg 09/28/24 19:42 Hydralazine Inj 20 Mg/Ml Vial IVP Q4H PRN SBP> or= 160 OR DBP> or= 110 Hydromorphone HCl 0.5 mg 09/28/24 20:45 09/29/24 00:02 Hydromorphone 0.5 Mg/0.5 Ml Syringe IVP 0.5 mg Q2H PRN Administration Severe Pain (Level 7-10) Insulin Glargine-yfgn 10 unit 09/28/24 21:00 09/28/24 23:16 Insulin Glargine-Yfgn 300 Unit/3 Ml Pen SUBQ 10 unit QPM RIOS Administration Insulin Human Lispro 1 - 5 unit 09/29/24 12:00 Insulin Lispro 300 Unit/3 Ml Pen SUBQ 0800,1200,1700,2100 [facility] Protocol Ondansetron HCl 4 mg 09/28/24 18:28 Ondansetron Odt 4 Mg Tablet TL Q6HR PRN Nausea / Vomiting Oxycodone HCl 5 mg 09/28/24 18:28 09/29/24 02:02 Oxycodone 5 Mg Tablet PO 5 mg Q4HR PRN Administration Pain 5 to 7 Sodium Chloride 10 ml 09/28/24 18:28 09/28/24 20:50 Sodium Chloride Flush 0.9% 10 Ml Syringe IVP 10 ml PRN PRN Administration NEEDED PER PROVIDER ORDERS Sodium Chloride 10 ml 09/29/24 01:00 09/29/24 08:08 Sodium Chloride Flush 0.9% 10 Ml Syringe IVP 10 ml 0100,0900,1700 RIOS Administration Sodium Zirconium Cyclosilicate 10 gm 09/29/24 09:00 09/29/24 08:08 Sodium Zirconium Cyclosilicate 5 Gm Packet PO 10 gm BID RIOS Administration Objective Vital Signs/Intake & Output Reviewed Vital Signs: Yes Vital Signs: Vital Signs x48h Temp Pulse Resp BP BP Pulse Ox 09/29/24 08:24 37.1 C 105 H 18 145/72 H 98 09/29/24 04:51 37.2 C 91 16 140/82 H 98 Intake & Output: Intake & Output 09/26/24 09/27/24 09/28/24 09/29/24 23:59 23:59 23:59 23:59 Intake Total 23476 / 32151 81195 / 20651 Output Total 65485 / 03133 07310 / 62597 Balance 725 / -75 -85442 / -16030 Weight (kg) 105.5 kg Objective General Appearance: positive No acute distress Eyes Bilateral: positive Normal inspection ENT: positive ENT inspection nml Neck: positive Nml inspection Respiratory: positive Chest non-tender and Breath sounds nml Cardiovascular: positive Regular rate & rhythm Abdomen: positive Other (Three-way Daniels catheter in place with light pink/red- tinged urine on slow drip CBI) Skin: positive Color nml Extremities: positive Non-tender Neurologic/Psychiatric: positive Oriented x3 Lab Results 09/29/24 04:42 09/29/24 04:42 Other Labs: Lab Results x24hrs 09/29/24 09/29/24 09/28/24 Range/Units 07:45 04:42 21:41 WBC 8.4 (4.8-10.8) x10^3/uL RBC 3.00 L (4.70-6.10) 10^6/uL Hgb 8.9 L (14.0-18.0) g/dL Hct 28.0 L (42.0-52.0) % MCV 93.3 (80.0-94.0) fL MCH 29.7 (27.0-31.0) pg MCHC 31.8 L (32.0-36.0) g/dL RDW 14.6 (12.0-15.0) % Plt Count 196 (130-450) 10^3/uL MPV 9.1 (7.4-11.4) fL Neut # (Auto) 6.2 (1.5-6.6) 10^3/uL Lymph # (Auto) 0.7 L (1.5-3.5) 10^3/uL [place] # (Auto) 1.3 H (0.0-1.0) 10^3/uL Eos # (Auto) 0.0 (0.0-0.7) 10^3/uL Baso # (Auto) 0.0 (0.0-0.1) 10^3/uL Absolute Nucleated RBC 0.00 x10^3/uL Nucleated RBC % 0.0 /100WBC Sodium 136 (135-145) mmol/L Potassium 5.5 H (3.5-4.5) mmol/L Chloride 107 (101-111) mmol/L Carbon Dioxide 21 (21-32) mmol/L Anion Gap 8.0 (6-13) BUN 48 H (6-20) mg/dL Creatinine 3.3 H (0.6-1.3) mg/dL Estimated GFR (MDRD) 18 L (>89) Glucose 175 H (74-104) mg/dL POC Whole Bld Glucose 228 150 (70-100) mg/dL Calcium 8.8 (8.5-10.3) mg/dL Total Bilirubin (0.2-1.0) mg/dL AST (10-42) IU/L ALT (10-60) IU/L Alkaline Phosphatase (42-121) IU/L Total Protein (6.4-8.9) g/dL Albumin (3.2-5.5) g/dL Globulin (2.1-4.2) g/dL Albumin/Globulin Ratio (1.0-2.2) Lipase (11-82) U/L 09/28/24 09/28/24 09/28/24 Range/Units 20:57 17:00 14:30 WBC 6.8 (4.8-10.8) x10^3/uL RBC 3.30 L (4.70-6.10) 10^6/uL Hgb 10.1 L 10.0 L (14.0-18.0) g/dL Hct 30.5 L (42.0-52.0) % MCV 92.4 (80.0-94.0) fL MCH 30.3 (27.0-31.0) pg MCHC 32.8 (32.0-36.0) g/dL RDW 14.3 (12.0-15.0) % Plt Count 199 (130-450) 10^3/uL MPV 9.0 (7.4-11.4) fL Neut # (Auto) 5.2 (1.5-6.6) 10^3/uL Lymph # (Auto) 0.5 L (1.5-3.5) 10^3/uL [place] # (Auto) 0.9 (0.0-1.0) 10^3/uL Eos # (Auto) 0.1 (0.0-0.7) 10^3/uL Baso # (Auto) 0.0 (0.0-0.1) 10^3/uL Absolute Nucleated RBC 0.00 x10^3/uL Nucleated RBC % 0.0 /100WBC Sodium 134 L 135 132 L (135-145) mmol/L Potassium 5.2 H 5.0 H 6.2 H* (3.5-4.5) mmol/L Chloride 106 108 106 (101-111) mmol/L Carbon Dioxide 18 L 20 L 20 L (21-32) mmol/L Anion Gap 10.0 7.0 6.0 (6-13) BUN 48 H 48 H 50 H (6-20) mg/dL Creatinine 3.2 H 3.1 H 3.2 H (0.6-1.3) mg/dL Estimated GFR (MDRD) 19 L 20 L 19 L (>89) Glucose 168 H 76 152 H (74-104) mg/dL POC Whole Bld Glucose (70-100) mg/dL Calcium 9.2 9.2 8.9 (8.5-10.3) mg/dL Total Bilirubin 0.5 (0.2-1.0) mg/dL AST 21 (10-42) IU/L ALT 9 L (10-60) IU/L Alkaline Phosphatase 290 H (42-121) IU/L Total Protein 6.8 (6.4-8.9) g/dL Albumin 3.9 (3.2-5.5) g/dL Globulin 2.9 (2.1-4.2) g/dL Albumin/Globulin Ratio 1.3 (1.0-2.2) Lipase 23 (11-82) U/L Assessment/Plan Problem List (1) ABLA (acute blood loss anemia): Impression: Persistent hematuria and Confucianism patient Plan for cystoscopy today per urology This is likely secondary to a prostate cancer Hemoglobin 8.9 this morning, 10 yesterday (2) Acute kidney injury: Impression: Urology suspects bilateral ureteral obstruction, so plan is to take him to the OR this afternoon for stenting Maintain CBI at slow drip until otherwise directed by urology BMP daily Creatinine 3.3 today (3) Hyperkalemia: Impression: Secondary to LATISHA Given his potassium of 5.5 this morning, he was started on Lokelma NS drip in the postoperative phase Recheck BMP in a.m. to monitor effect of Lokelma (4) Acute urethral obstruction: Impression: Daniels in place Urology following (5) Diabetes mellitus with chronic kidney disease, with long-term current use of insulin: Impression: Holding most of his antidiabetic regimen while inpatient Lantus 10 units every afternoon Low-dose SSI Qualifiers: Chronic kidney disease stage: stage 4 (GFR 15-29) Diabetes mellitus type: type 2 Qualified Code(s): E11.22 - Type 2 diabetes mellitus with diabetic chronic kidney disease; N18.4 - Chronic kidney disease, stage 4 (severe); Z79.4 - oysterman (current) use of insulin (6) Prostate mass: Impression: Prostate cancer with mets to lymph Will need oncology in the outpatient setting
[2024-09-29] MEDS ORDERED: fentaNYL 100 MCG/2 ML VIAL ONE ×4 (12:04→14:35)
[2024-09-29] MEDS ORDERED: PROPOFOL 200 MG/20 ML VIAL IVP ONE (12:04)
[2024-09-29] MEDS ORDERED: LIDOCAINE-PF 2% 10 ML AMP SUBQ ONE (12:04)
[2024-09-29] MEDS ORDERED: LIDOCAINE 2% URO-JET 5 ML SYRINGE UR ONE (12:12)
[2024-09-29] MEDS ORDERED: MIDAZOLAM 2 MG/2 ML VIAL ONE (12:28)
[2024-09-29] MEDS ORDERED: DEXAMETHASONE 4 MG/ML VIAL ONE (12:46)
[2024-09-29] MEDS ORDERED: ONDANSETRON 4 MG/2 ML VIAL ONE (12:46)
--- NOTE | 2024-09-29 12:46 | PHARMACY PROGRESS NOTE ---
Best Possible Medication History Admit Date and Time: 09/28/24 [id number] Home Medications Medication Instructions Recorded Confirmed Type vibegron 75 mg tablet (Gemtesa) 75 mg PO DAILY 4 09/29/24 History finasteride 5 mg tablet 5 mg PO DAILY 09/24/2409/29 History glipizide 10 mg tablet, extended 10 mg PO DAILY 09/29/24 History release 24 hr tadalafil 5 mg tablet 5 mg PO DAILY 09/24/2409/29 History tamsulosin 0.4 mg capsule 0.8 mg PO QDAY 09/24/2401/15 History pen needle, diabetic 31 gauge x #400 ea 09/27/2409/29 Rx 5/16" empagliflozin 10 mg tablet 10 mg PO DAILY 09/28/2401/15 History (Jardiance) lisinopril 10 mg tablet 20 mg PO DAILY 09/29/2401/15 History metformin 500 mg tablet,extended 1,000 mg PO DAILY 01/1509/29/24 History release 24 hr Processed by: Pharmacy (Medication reconciliation completed by Sales Team [employer]) Medications reviewed in ED?: No Medication History completed: Yes Patient Interview: Completed Secondary Source(s): Insurance records (Unable to confirm Vibegron via insurance) [facility] Statement: As the person ultimately responsible for medication therapy, providers are able to order a medication from an existing home medication list in [facility] via the "Reconcile Routine" prior to Confirmation of that medication by logistics support. Such practice is discouraged except when the physician, in their clinical judgment, deems that a medical need exists for a medication without regard to previous use.
[2024-09-29] MEDS ORDERED: PHENYLEPHRINE HCL 0.5 MG/5 ML AMPULE ONE (12:47)
[2024-09-29] MEDS ORDERED: ceFAZolin 1 GM VIAL ONE ×2 (12:55)
[2024-09-29] MEDS ORDERED: ePHEDrine 50 MG/ML VIAL IVP PRN (13:06)
[2024-09-29] MEDS ORDERED: HYDROmorphone 0.5 MG/0.5 ML SYRINGE IVP PRN (13:06)
[2024-09-29] MEDS ORDERED: MORPHINE 2 MG/ML CARPUJECT IVP PRN (13:06)
[2024-09-29] MEDS ORDERED: ATROPINE ABBOJECT 1 MG/10 ML SYRINGE IVP PRN (13:06)
[2024-09-29] MEDS ORDERED: ONDANSETRON 4 MG/2 ML VIAL IVP PRN (13:06)
[2024-09-29] MEDS ORDERED: METOCLOPRAMIDE 10 MG/2 ML VIAL IVP PRN (13:06)
[2024-09-29] MEDS ORDERED: NALOXONE 0.4 MG/ML VIAL IVP PRN (13:06)
[2024-09-29] MEDS: INSULIN LISPRO 300 UNIT/3 ML PEN SUBQ SCH (13:09)
[2024-09-29] MEDS ORDERED: SODIUM CHLORIDE 0.9% 10 ML VIAL ONE (13:16)
[2024-09-29] MEDS ORDERED: ePHEDrine 50 MG/ML VIAL IVP ONE (13:16)
[2024-09-29] MEDS ORDERED: LACTATED RINGERS 1,000 ML IV PRN (13:18)
[2024-09-29] MEDS: fentaNYL 100 MCG/2 ML VIAL IVP PRN (14:16)
--- NOTE | 2024-09-29 14:38 | ANESTHESIA POST OP EVALUATION ---
Anesthesia Post Eval Post Anesthesia Eval Vitals: Last Vital Signs Temp 36.9 C 09/29/24 14:26 Pulse 98 09/29/24 14:26 Resp 15 09/29/24 14:26 BP 166/85 H 09/29/24 14:26 Pulse Ox 96 09/29/24 14:26 CV Function Including HR & BP: Stable Pain Control: Satisfactory Nausea & Vomiting: Negative Mental Status: Baseline Respiratory Status: Airway Patent Hydration Status: Satisfactory Anesthesia Complications: None
[2024-09-29] MEDS: LACTATED RINGERS 1,000 ML IV SCH (14:44)
[2024-09-29] MEDS: ceFAZolin (2G) 2 GM in SODIUM CHLORIDE 0.9% MINIBAG 100 ML IV ONE (15:14)
--- NOTE | 2024-09-29 15:33 | OPERATIVE REPORT ---
Operative Report General Admit Date: 09/28/24 Procedure Data: Operation Date: 09/29/24 13:30 Proposed Procedures p CYSTO CLOT EVAC FULGURATION W/ POSSIBLE BILATERAL STENT(Bilateral) - Jaziel Guo MD Actual Procedures p CYSTOSCOPY, CLOT EVACUATION AND FULGURATION, TRANSURETHRAL PROSTATE BIOPSY (Bilateral) - Jaziel Guo MD Pre-Op Diagnosis: HEMATURIA, BILATERAL URETERAL OBSTRUCTION Anesthesia Type General Case Staff Anesthesia Provider: Froilan Bourne Case Times Into Recovery: 09/29/24 13:43 Procedure Start: 09/29/24 12:55 Procedure End: 09/29/24 13:36 Time out: 09/29/24 12:54 Pre-Op Diagnosis: hematuria, elevated PSA, bilateral ureteral obstruction Post Op Diagnosis: hematuria, elevated PSA, bilateral ureteral obstruction Procedure Note Estimated Blood Loss (ml): 5 Findings: 30cc old clot large rigid prostate infiltration of trigone UOs not visualized small biopsy of prostate tissue sent Complications: unable to localize UOs Other Other Information/Narrative: After informed consent was obtained the patient was brought to the OR and laid in the supine position. The patient was anesthetized per anesthesia protocols. His Daniels catheter was removed. He was then prepped and draped in the usual sterile fashion in the dorsal lithotomy position. A formal timeout was performed reconfirming the patient, procedure and laterality A 26 [place] long resectoscope was advanced into the urinary bladder. He had a very large and rigid prostate with nodularity throughout. His bladder had a large amount of dense clot in it. Using an Ellik evacuator we removed about 50 cc of old dense clot. We reinspected the bladder and saw no obvious bleeding areas except for some oozing from the prostate mucosa. Spot cautery was used for hemostasis. We then switched out to a 22 [place] cystoscope and inspected the bladder. His trigone was clearly infiltrated with nodular tissue. He had 3+ trabeculations and many cellules. Using a angled sensor wire through a 5 [place] open-ended ureteral catheter we attempted to cannulate multiple possible areas of the trigone which could be the ureteral orifice however we could ultimately not identify the UO in either side. We switched again to a 26 [place] long resectoscope and using a loop electrocautery and the bipolar setting we resected a small portion of prostate tissue which appeared to be nodular as a prostate biopsy to assist with tissue diagnosis. Loop electrocautery was used to coagulate any remaining oozing areas. There was excellent hemostasis. Uro-Jet was placed and a 22 [place] three-way Daniels catheter was placed with 50 cc in the balloon. He was placed on gentle bladder irrigation This concluded the procedure and the patient tolerated the procedure well. He will return to the medical service. Will monitor his electrolytes and renal function closely. He may need transfer for nephrostomy tube placement
--- NOTE | 2024-09-29 17:28 | XRAY Report ---
PROCEDURE: FL OR C-Arm Procedure INDICATIONS: Surgical Procedure FLUORO TIME: 0.01 MIN COMPARISON: None. FINDINGS/IMPRESSION: 2 intraoperative fluoroscopic images demonstrate partial visualization of the spine. No instrumentation or contrast visualized. Please see operative report for full details. Reviewed by: Rocio Alfaro MD, PhD on 09/29/2024 5:27 PM PDT Approved by: Rocio Alfaro MD, PhD on 09/29/2024 5:27 PM PDT Station ID: [id number]
[2024-09-30] MEDS: CALCIUM CARBONATE CHEW 500 MG TABLET PO PRN (03:07)
[2024-09-30] MEDS: ACETAMINOPHEN 325 MG TABLET PO PRN (05:29)
[2024-09-30 07:32] VITALS: O2SAT 97
--- NOTE | 2024-09-30 07:55 | PROVIDER PROGRESS NOTE ---
Subjective Prog Note Date Prog Note Date: 09/30/24 Prog Note Time: 09:08 Subjective Pt reports feeling: Improved Subjective: No issues with clotting overnight Current Medications Current Medications Current Medications: Current Medications Generic Name Dose Route Start Last Admin Trade Name Freq PRN Reason Stop Dose Admin Acetaminophen 650 mg 09/28/24 18:28 09/30/24 05:29 Acetaminophen 325 Mg Tablet PO 650 mg Q4HR PRN Administration Pain 1 to 4, or Fever Calcium Carbonate/Glycine 500 mg 09/30/24 00:48 09/30/24 03:07 Calcium Carbonate Chew 500 Mg Tablet PO 500 mg Q8HR PRN Administration Heartburn Hydralazine HCl 10 mg 09/28/24 19:42 Hydralazine Inj 20 Mg/Ml Vial IVP Q4H PRN SBP> or= 160 OR DBP> or= 110 Hydromorphone HCl 0.5 mg 09/28/24 20:45 09/29/24 22:37 Hydromorphone 0.5 Mg/0.5 Ml Syringe IVP 0.5 mg Q2H PRN Administration Severe Pain (Level 7-10) Lactated Ringer's 1,000 mls @ 0 mls/hr 09/29/24 13:18 Lr IV .Q0M PRN preop TKO Insulin Glargine-yfgn 10 unit 09/28/24 21:00 09/29/24 20:56 Insulin Glargine-Yfgn 300 Unit/3 Ml Pen SUBQ 10 unit QPM RIOS Administration Insulin Human Lispro 1 - 5 unit 09/29/24 12:00 09/29/24 20:57 Insulin Lispro 300 Unit/3 Ml Pen SUBQ 3 unit 0800,1200,1700,2100 RIOS Administration Protocol Ondansetron HCl 4 mg 09/28/24 18:28 Ondansetron Odt 4 Mg Tablet TL Q6HR PRN Nausea / Vomiting Oxycodone HCl 5 mg 09/28/24 18:28 09/29/24 18:04 Oxycodone 5 Mg Tablet PO 5 mg Q4HR PRN Administration Pain 5 to 7 Sodium Chloride 10 ml 09/28/24 18:28 09/28/24 20:50 Sodium Chloride Flush 0.9% 10 Ml Syringe IVP 10 ml PRN PRN Administration NEEDED PER PROVIDER ORDERS Sodium Chloride 10 ml 09/29/24 01:00 09/29/24 23:29 Sodium Chloride Flush 0.9% 10 Ml Syringe IVP 10 ml 0100,0900,1700 RIOS Administration Sodium Zirconium Cyclosilicate 10 gm 09/29/24 09:00 09/29/24 20:56 Sodium Zirconium Cyclosilicate 5 Gm Packet PO 10 gm BID RIOS Administration Objective Vital Signs/Intake & Output Reviewed Vital Signs: Yes Vital Signs: Vital Signs x48h Temp Pulse Resp BP BP Pulse Ox 09/30/24 07:31 36.9 C 92 16 164/82 H 97 09/30/24 05:25 98 166/86 H 09/30/24 05:16 37.1 C 96 18 166/90 H 96 Intake & Output: Intake & Output 09/27/24 09/28/24 09/29/24 09/30/24 23:59 23:59 23:59 23:59 Intake Total 54103 / 16527 47870 / 04654 3600 / 3600 Output Total 35591 / 48776 95750 / 61939 8100 / 8100 Balance 725 / -75 -66829 / -47979 -4500 / -4500 Weight (kg) 105.5 kg Objective General Appearance: positive No acute distress (Three-way Daniels catheter in place on very light drip CBI, yellow effluent) Lab Results 09/30/24 08:00 09/30/24 08:00 Other Labs: Lab Results x24hrs 09/30/24 09/29/24 09/29/24 Range/Units 07:27 20:30 16:31 POC Whole Bld Glucose 143 239 196 (70-100) mg/dL 09/29/24 Range/Units 10:55 POC Whole Bld Glucose 167 (70-100) mg/dL Assessment/Plan Problem List (1) Acute kidney injury: Impression: Unable to place ureteral stents due to infiltrative prostate mass very likely aggressive metastatic prostate cancer I have prescribed him bicalutamide 150 mg to take daily to start androgen deprivation therapy. His will pick this up from outside pharmacy and bring it in. He will need clearance from our in-house pharmacy team which should not be an issue I did send a small piece of his prostate as a biopsy yesterday. His kidney function is stable with a GFR of 18 but he continues to have relatively elevated potassium at 5.5. If kidney function remains poor he will need bilateral nephrostomy tubes placed while awaiting prostate cancer treatment. We do not have a capability here and so he would need to be transferred for this. The other option would be to home on a low potassium diet with quick follow-up while awaiting hopefully prostate cancer treatment which may improve his drainage of his kidneys Will discuss with medical team further (2) Acute urethral obstruction: Impression: Daniels catheter should remain in place for now. Should be changed monthly. Patient should not return to clean intermittent catheterization for now (3) Hematuria: Impression: Presumed metastatic prostate cancer. Hematuria resolved after cystoscopy clot evacuation and fulguration on September 29, 2024 Qualifiers: Hematuria type: gross Qualified Code(s): R31.0 - Gross hematuria
[2024-09-30 08:05] LABS: HCT - HEMATOCRIT 26.7 % (42.0-52.0); HGB - HEMOGLOBIN 8.8 g/dL (14.0-18.0); MEAN CORPUSCULAR HEMOGLOBIN 30.6 pg (27.0-31.0); MEAN CORPUSCULAR VOLUME 92.7 fL (80.0-94.0); MEAN PLATELET VOLUME 8.9 fL (7.4-11.4); RED BLOOD COUNT 2.88 10^6/uL (4.70-6.10); RED CELL DISTRIBUTION WIDTH 14.6 % (12.0-15.0); WHITE BLOOD COUNT 11.1 x10^3/uL (4.8-10.8)
[2024-09-30 08:21] LABS: CALCIUM 8.8 mg/dL (8.5-10.3); CREATININE 3.3 mg/dL (0.6-1.3); POTASSIUM 5.5 mmol/L (3.5-4.5)
[2024-09-30] MEDS: CONCENTRATED ALBUTEROL NEB 2.5 MG/0.5 ML INH STA (10:36)
[2024-09-30] MEDS: DEXTROSE 50% ABBOJECT 25 GM/50 ML SYRINGE IVP ONE (11:01)
[2024-09-30] MEDS: INSULIN REGULAR, HUMAN 300 UNIT/3 ML PEN IVP ONE (11:02)
[2024-09-30] MEDS: SODIUM BICARBONATE ABBOJECT 50 MEQ/50 ML SYRINGE IVP ONE (11:03)
[2024-09-30] MEDS: SODIUM CHLORIDE 0.9% 1,000 ML IV SCH (11:39)
[2024-09-30] MEDS: BICALUTAMIDE 50 MG PO SCH (14:12)
--- NOTE | 2024-09-30 15:24 | PHARMACY PROGRESS NOTE ---
Monitoring Indication for anticoagulation: Atrial Fibrillation and Biomechanical heart valve Goal INR: 2-3 Previous home regime: 2.5 mg daily Potentially interacting medications: azithromycin Other anticoagulation: None Risk factors for bleed: Hypertension, Heart disease or CO, Renal insufficiency and Age >65 Recommendations Dosing: Anticoagulation Monitoring 09/30/24 09/29/24 09/28/24 08:00 04:42 20:57 Hgb 8.8 L 8.9 L 10.1 L Hct 26.7 L 28.0 L 09/28/24 14:30 Hgb 10.0 L Hct 30.5 L Last Dose Given: S&S of bleeding: Pharmacy recommendation: Hold dose
[2024-09-30 16:10] VITALS: BP 162/100; TEMP 99
--- NOTE | 2024-09-30 18:07 | Discharge Summary ---
Discharge Summary Admit Date: 09/28/24 Discharge Date: 09/30/24 Discharging Provider: Pablo Logan Primary Care Provider: Jessica Bradley Code Status: Attempt Resuscitation DIAGNOSES Admission Diagnoses: Acute hyperkalemia Acute kidney injury Acute urethral obstruction Diabetes mellitus due to underlying condition with chronic kidney disease Hypertension Discharge Diagnoses with Status of Each Condition: Hyperkalemiaresolved, secondary to LATISHA. Discharging on Lokelma Acute kidney injurysecondary to obstructive cancer. Discharging on Daniels catheter with urology follow-up Acute urethral obstructionFoley Diabetes mellituschronic Hypertensionchronic HPI History of Present Illness: 74-year-old male who presents to the emergency department today with complaints of hematuria. He has a past medical history of chronic urinary retention with self cathing, diabetes, hypertension, renal insufficiency. He was in our facility approximately 12 hours prior with inability to straight cath himself and increasing hematuria over the last several days. A Daniels catheter was placed, irrigated until clear and the patient was discharged to home. Then this morning he noted increasing hematuria and then had the sensation of fullness in his bladder although he had the Daniels in place. He therefore re presented to the emergency department with acute urinary retention. He does not take any aspirin or Plavix. he is not on any blood thinners. Socially, he lives on his [address] [facility] which has been in his family since settlement. 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 He has several of his children that live on the property with him. He is a Rastafarian and as such does not want any blood products. HOSPITAL COURSE Hospital Course: Three-way Daniels catheter was placed and CBI was initiated. He underwent cystoscopy with clot evacuation and fulguration, transurethral prostate biopsy. Urology reports that there is high suspicion for aggressive metastatic prostate cancer. He was started on bicalutamide for androgen deprivation therapy. He received several doses of Lokelma, and his potassium corrected to 4.7. He is being discharged home with Daniels catheter and will have very rapid follow-up with urology ALLERGIES Allergies Allergy/AdvReac Type Severity Reaction Status Date / Time No Known Drug Allergies Allergy Verified 09/28/24 12:45 MEDICATIONS Ambulatory Orders Medication Instructions Recorded Confirmed vibegron 75 mg tablet (Gemtesa) 75 mg PO DAILY 4 09/29/24 finasteride 5 mg tablet 5 mg PO DAILY 09/24/2409/29 glipizide 10 mg tablet, extended 10 mg PO DAILY 09/29/24 release 24 hr tadalafil 5 mg tablet 5 mg PO DAILY 09/24/2409/29 tamsulosin 0.4 mg capsule 0.8 mg PO QDAY 09/24/2401/15 pen needle, diabetic 31 gauge x #400 ea 09/27/2409/29" empagliflozin 10 mg tablet 10 mg PO DAILY 09/28/2401/15 (Jardiance) bicalutamide 50 mg tablet 150 mg (3 x 50 mg) PO DAILY #90 09/29/24 tabs lisinopril 10 mg tablet 20 mg PO DAILY 09/29/2401/15 metformin 500 mg tablet,extended 1,000 mg PO DAILY 01/1509/29/24 release 24 hr sodium zirconium cyclosilicate 5 10 g PO BID 7 days #1 1 ea 09/30/24 gram oral powder packet (Lokelma) PHYSICAL EXAM AT DISCHARGE Vital Signs: Vital Signs x48h Temp Pulse Pulse Resp BP BP Pulse Ox 09/30/24 16:08 37.2 C 119 H 20 162/100 H 97 09/30/24 13:00 37.3 C 103 H 18 178/76 H 97 09/30/24 10:40 90 18 General Appearance: positive No acute distress and Alert Eyes Bilateral: positive Normal inspection ENT: positive ENT inspection nml Neck: positive Nml inspection Respiratory: positive Chest non-tender and No respiratory distress Cardiovascular: positive Regular rate & rhythm Peripheral Pulses: positive 2+ Abdomen: positive Non-tender and Other (Three-way Daniels catheter with the intake port plugged. Urine is not bloody but does have some sediment) Skin: positive Color nml Extremities: positive Non-tender and Pedal edema Neurologic/Psychiatric: positive Oriented x3 LABS 09/30/24 08:00 09/30/24 14:06 FOLLOW UP Follow Up: With PCP, urology TIME SPENT Time Spent in Discharge (Minutes): 35 Discharge Plan Discharge Patient Disposition: Home, Self Care Condition: Good Prescriptions: New bicalutamide 50 mg tablet 150 mg PO DAILY Qty: 90 3RF Lokelma 5 gram Powder In Packet 10 g PO BID 7 Days Qty: 11 0RF Continued Jardiance 10 mg tablet 10 mg PO DAILY metformin 500 mg tablet extended release 24 hr 1,000 mg PO DAILY Patient Comments: Has not taken for 3 days lisinopril 10 mg tablet 20 mg PO DAILY Patient Comments: Patient states he was taking 10mg daily, now taking 20mg daily Gemtesa 75 mg tablet 75 mg PO DAILY finasteride 5 mg tablet 5 mg PO DAILY glipizide 10 mg tablet extended release 24hr 10 mg PO DAILY tamsulosin 0.4 mg capsule 0.8 mg PO QDAY tadalafil 5 mg tablet 5 mg PO DAILY (DME) pen needle, diabetic 31 gauge x 5/16" needle See Rx Instructions .Route Qty: 400 0RF Rx Instructions: As directed Activity Restrictions: No Restrictions Diet: Regular Health Concerns: You came into the hospital with bleeding in your urine Secondary to cancer. You were placed on continuous bladder irrigation with resolution of your bleeding. You underwent cystoscopy on 09/29 and had some clots evacuated. You continue to have an acute kidney injury likely related to obstruction from cancer. Dr. Guo has started you on medication to help reduce the total size of the cancer to improve urine flow. I am sending you home with a medications designed to keep your potassium low. I have written you for a weeks worth. I would like for you to follow-up with your primary care provider and with urology for further management Print Language: Malian Patient Instructions: Surg Dc Stand Alone Forms: PCP List
== END 2024-09-30 18:05 | disposition home or self-care (01) | DRG 641 ==
LOC: ED 12:40 → MS2 18:16
PROVIDERS: ADMIT Physician Assistant Medical; ATTEND Physician Assistant Medical
DX: E87.5 Hyperkalemia; N13.5 Crossing vessel and stricture of ureter without hydronephrosis; N17.9 Acute kidney failure, unspecified; Z79.4 Long term (current) use of insulin; N13.8 Other obstructive and reflux uropathy; R00.0 Tachycardia, unspecified; C61 Malignant neoplasm of prostate; E11.22 Type 2 diabetes mellitus with diabetic chronic kidney disease; R33.8 Other retention of urine; R31.0 Gross hematuria; Z79.84 Long term (current) use of oral hypoglycemic drugs; R31.9 Hematuria, unspecified; I45.10 Unspecified right bundle-branch block; N42.9 Disorder of prostate, unspecified; N40.1 Benign prostatic hyperplasia with lower urinary tract symptoms; D62 Acute posthemorrhagic anemia; N36.8 Other specified disorders of urethra; N18.4 Chronic kidney disease, stage 4 (severe); I12.9 Hypertensive chronic kidney disease with stage 1 through stage 4 chronic kidney disease, or unspecified chronic kidney disease